=== PATIENT | female | born 1990 | race Caucasian/White ===

== ENCOUNTER 2016-07-30 08:13 | Emergency (ER) | payer OTHER ==
[2016-07-30 08:22] VITALS: BP 120/91; PULSE 71; TEMP 97.8; BMI 41.9
[2016-07-30] MEDS ORDERED: DEXAMETHASONE SOD PHOSPHATE 10 MG/1 ML VIAL IM ONE (08:42)
[2016-07-30] MEDS ORDERED: DEXAMETHASONE SOD PHOSPHATE 10 MG/1 ML VIAL ONE (08:48)
--- NOTE | 2016-07-30 09:26 | PDOC ---
[id number] TONSILITIS Time Seen by Provider: 07/30/16 08:37 History Source: Patient Exam Limitations: No Limitations - History of Present Illness Initial Comments: 07/30/16 15:31 25 yr female with sore throat for one week was on zpack for 5 days felt better than symptoms returned. no fever, hoarse voice ,, pt able to swallow secretions , no diffuculty. Past History - Past Medical History Allergies/Adverse Reactions: Allergies Allergy/AdvReac Type Severity Reaction Status Date / Time amoxicillin Allergy Mild Hives Verified 07/30/16 08:18 valdecoxib [From Bextra] Allergy Verified 07/30/16 08:18 ibuprofen AdvReac Verified 07/30/16 08:18 Home Medications: Ambulatory Orders Clindamycin [Cleocin -] 300 mg PO TID #30 capsule 07/30/16 Asthma: Yes Other medical history: migraines - Psycho/Social/Smoking Cessation Hx Anxiety: No Suicidal Ideation: No Smoking History: Never smoked Have you smoked in the past 12 months: No Information on smoking cessation initiated: No Hx Alcohol Use: No Drug/Substance Use Hx: No Substance Use Type: None Review of Systems - Review of Systems Able to Perform ROS?: Yes Is the patient limited Tuvaluan proficient: No Constitutional: No: Symptoms Reported HEENTM: Yes: See HPI Respiratory: No: Symptoms reported Cardiac (ROS): No: Symptoms Reported ABD/GI: No: Symptoms Reported : No: Symptoms Reported Musculoskeletal: No: Symptoms Reported Integumentary: No: Symptoms Reported Neurological: No: Symptoms reported *Physical Exam - Vital Signs Last Vital Signs Temp Pulse Resp BP Pulse Ox 97.8 F 71 18 120/91 100 07/30/16 08:19 07/30/16 08:19 07/30/16 08:19 07/30/16 08:19 07/30/16 08:19 - Physical Exam General Appearance: Yes: Nourished, Appropriately Dressed HEENT: positive: EOMI, SHORTY, TMs Normal, Pharyngeal Erythema, Tonsillar Erythema. negative: Tonsillar Exudate Neck: positive: Supple. negative: Tender Respiratory/Chest: positive: Lungs Clear, Normal Breath Sounds Cardiovascular: positive: Regular Rhythm, Regular Rate Gastrointestinal/Abdominal: positive: Normal Bowel Sounds, Soft, Other (27 weeks ) Musculoskeletal: positive: Normal Inspection Extremity: positive: Normal Capillary Refill, Normal Inspection, Normal Range of Motion Integumentary: positive: Normal Color, Dry, Warm Neurologic: positive: client support coordinator II-XII NML intact, Fully Oriented, Alert, Normal Mood/ Affect, Normal Response, Motor Strength 09/28 ED Treatment Course - ADDITIONAL ORDERS Additional order review: 07/30/16 08:55 Group A Strep Rapid Antigen - Final Throat - Medications Given in the ED: ED Medications Discontinued Medications Generic Name Dose Route Start Last Admin Trade Name Sharee PRN Reason Stop Dose Admin Dexamethasone Sodium Phosphate 10 mg 07/30/16 08:42 07/30/16 08:58 Decadron Injection - IM 07/30/16 08:43 10 mg ONCE ONE Administration Medical Decision Making - Medical Decision Making 07/30/16 15:33 cc: sore throat will check for strep pt non toxic stable vitals 07/30/16 15:35 positive will prescribe clindamycin for 10 days . results discussed with the patient. *DC/Admit/Observation/Transfer Diagnosis at time of Disposition: Strep pharyngitis - Discharge Dispostion Disposition: HOME Condition at time of disposition: Good - Prescriptions Prescriptions: Clindamycin [Cleocin -] 300 mg PO TID #30 capsule - Referrals Referrals: Malinda Alvarez MD [Primary Care Provider] - - Patient Instructions Additional Instructions: gargle with warm salt water 4-5 times a day take tylenol extra strength every 6-8hrs for pain take the prescribed antibiotic as directed for 10 days clindamycin follow with ENT if symptoms do not improve or worsen - Post Discharge Activity Work/School Note: Back to Work
[2016-07-30] MEDS ORDERED: ACETAMINOPHEN 500 MG TABLET (FP) ONE (09:33)
[2016-07-30] MEDS ORDERED: ACETAMINOPHEN 500 MG TABLET (FP) PO ONE (09:40)
== END 2016-07-30 09:41 | disposition home or self-care (01) ==
LOC: JERFT 08:13
PROC: 3E0233Z Introduction of Anti-inflammatory into Muscle, Percutaneous Approach (ICD-10-PCS; principal; 2016-07-30)
DX: J02.0 Streptococcal pharyngitis (principal); B95.0 Streptococcus, group A, as the cause of diseases classified elsewhere
CPT/HCPCS: 87070; 87430; 96372; 99281-25

== ENCOUNTER 2017-05-17 13:17 | Inpatient (IN) | payer OTHER ==
[2017-05-17 13:41] VITALS: BMI 41.9
[2017-05-17] MEDS ORDERED: SODIUM CHLORIDE 0.9% 1000 ML INFUS.BAG IV ONE ×2 (15:26→18:02)
[2017-05-17] MEDS ORDERED: ACETAMINOPHEN 1000 MG/100 ML VIAL (NON FORMULARY) IVPB ONE (15:26)
--- NOTE | 2017-05-17 15:38 | PDOC ---
History of Present Illness - General Chief Complaint: Pain, Acute Stated Complaint: DEHYDRATED (PCP SENT) Time Seen by Provider: 05/17/17 15:02 History Source: Patient, Parent(s) Exam Limitations: No Limitations - History of Present Illness Initial Comments: This is a 26 YOF with h/o asthma, gastritis, and dysmenorrhea (but LMP ended yesterday) who presents c/o abdominal pain, nausea, vomiting, and diarrhea for the past two days. 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 The abdominal pain is diffuse but worse in the epigastric and umbilical areas and radiates to the mid-back. She has had 9 episodes of NBNB vomiting since midnight today, and several episodes of light brown diarrhea (non-bloody non-black). She tried to take medications for her pain but has not been able to keep anything down, including medications and liquids. She has additionally had frontal headache and lightheadedness (causing her to be slightly unstable on her feet). She denies any vision changes, neck pain, chest pain, SOB, painful urination, vaginal bleeding or discharge, or other symptoms. Past History - Past Medical History Allergies/Adverse Reactions: Allergies Allergy/AdvReac Type Severity Reaction Status Date / Time amoxicillin Allergy Mild Hives Verified 05/17/17 13:34 valdecoxib [From Bextra] Allergy Verified 05/17/17 13:34 ibuprofen AdvReac Verified 05/17/17 13:34 Home Medications: Ambulatory Orders Clindamycin [Cleocin -] 300 mg PO TID #30 capsule 07/30/16 Asthma: Yes COPD: No GI Disorders: Yes - Suicide/Smoking/Psychosocial Hx Smoking History: Never smoked Have you smoked in the past 12 months: No Information on smoking cessation initiated: No Hx Alcohol Use: No Drug/Substance Use Hx: No Substance Use Type: None Review of Systems - Review of Systems Able to Perform ROS?: Yes Constitutional: Yes: Chills, Fever. No: Unexplained wgt Loss HEENTM: No: Nose Congestion, Throat Pain Respiratory: No: Cough, Shortness of Breath Cardiac (ROS): Yes: Lightheadedness. No: Chest Pain, Palpitations ABD/GI: Yes: Nausea, Poor Appetite, Vomiting, Other (abdominal pain) : No: Burning, Dysuria Musculoskeletal: Yes: Back Pain. No: Neck Pain Integumentary: No: Bruising, Rash Neurological: Yes: Headache. No: Numbness, Tingling, Weakness Endocrine: No: Unexplained Weight Gain, Unexplained Weight Loss *Physical Exam - Vital Signs Last Vital Signs Temp Pulse Resp BP Pulse Ox 99.3 F 117 H 18 118/65 100 05/17/17 13:36 05/17/17 13:36 05/17/17 13:36 05/17/17 13:36 05/17/17 13:36 - Physical Exam General Appearance: Yes: Nourished, Appropriately Dressed, Obese, Other (ill- appearing adult female in wheelchair with mother at bedside, appears uncomfortable and in mild distress, very soft-spoken). No: Apparent Distress HEENT: positive: EOMI, SHORTY, Normal Voice, Hearing Grossly Normal. negative: Scleral Icterus (R), Scleral Icterus (L), Nasal Congestion Neck: positive: Trachea midline, Supple. negative: Tender, Rigid Respiratory/Chest: positive: Lungs Clear, Normal Breath Sounds. negative: Respiratory Distress, Crackles, Rhonchi, Stridor, Wheezing Cardiovascular: positive: Regular Rhythm, Tachycardia. negative: Murmur Gastrointestinal/Abdominal: positive: Normal Bowel Sounds, Tender (umbilical and epigastric tenderness to palptation, no rebound tenderness, no peritoneal signs), Soft, Protuberent. negative: Organomegaly, Pulsatile Mass, Guarding Musculoskeletal: positive: Normal Inspection. negative: Decreased Range of Motion, Vertebral Tenderness Extremity: positive: Normal Capillary Refill, Normal Inspection, Normal Range of Motion. negative: Tender, Cyanosis Integumentary: positive: Normal Color, Dry, Warm. negative: Erythema, Rash, Bruising Neurologic: positive: consultant II-XII NML intact (grossly), Fully Oriented, Alert, Normal Mood/Affect, Normal Response, Motor Strength 5/5 ED Treatment Course - LABORATORY CBC & Chemistry Diagram: 05/17/17 16:29 05/17/17 16:29 Medical Decision Making - Medical Decision Making 26 YOF presents with 2 days abdominal pain, nausea, vomiting, diarrhea, subjective fever. Sent by her PCP where she was being seen for these symptoms and she was tachycardic in their office. Here in the ED she is tachycardic to 117 and febrile to 100.3 rectally. Sepsis order set is placed, also ordered is CT abdomen/pelvis w/ IV contrast, IVF, Ofirmev, Zofran. DDX IBNLT gastroenteritis, pancreatitis (i.e. 2/2 gallstones), cholecystitis, appendicitis, PUD, hepatitis, etc. 05/17/17 18:36 Patient's symptoms improved with IVF, Ofirmev, and Zofran. CBCD, CMP, lipase, lactate, UA and cx negative. Awaiting CT abdomen/pelvis. 05/17/17 18:55 Patient has return from CT now awaiting final report. Patient's care is signed out to night team. *DC/Admit/Observation/Transfer Diagnosis at time of Disposition: Abdominal pain Qualifiers: Abdominal location: epigastric Qualified Code(s): R10.13 - Epigastric pain Vomiting Qualifiers: Vomiting type: unspecified Vomiting Intractability: non-intractable Nausea presence: with nausea Qualified Code(s): R11.2 - Nausea with vomiting, unspecified Fever Qualifiers: Fever type: unspecified Qualified Code(s): R50.9 - Fever, unspecified - Referrals Referrals: Guille Reynolds [Primary Care Provider] - - Patient Instructions - Post Discharge Activity
[2017-05-17] MEDS ORDERED: ACETAMINOPHEN INJECTION 100 ML IVPB ONE (16:44)
--- NOTE | 2017-05-17 16:45 | PDOC ---
Attending Attestation - Resident Resident Name: Linda Ruiz - ED Attending Attestation I have performed the following: I have examined & evaluated the patient, The case was reviewed & discussed with the resident, I agree w/resident's findings & plan, Exceptions are as noted - HPI HPI: 05/17/17 16:48 26-year-old female hx of asthma presents to the emergency Department with diffuse abdominal pain, nausea, vomiting, diarrhea. Patient reports 3 days of the symptoms and states she is having difficulty tolerate by mouth. Has had tactile fevers. Patient went to her doctor but noted that she was severely dehydrated and tachycardic and sent the patient to the ED. - Physicial Exam PE: 05/17/17 16:49 GENERAL: Awake, alert, and fully oriented, in no acute distress. HEAD: No signs of trauma EYES: PERRLA, EOMI, sclera anicteric, conjunctiva clear ENT: Auricles normal inspection, hearing grossly normal, nares patent, oropharynx clear without exudates. NECK: Normal ROM, supple, no lymphadenopathy, JVD, or masses LUNGS: Breath sounds equal, clear to auscultation bilaterally. No wheezes, and no crackles HEART: Regular rate and rhythm, normal S1 and S2, no murmurs, rubs or gallops ABDOMEN: Diffuse abdominal tenderness. No rebound, no guarding. EXTREMITIES: Normal range of motion, no edema. No clubbing or cyanosis. No cords, erythema, or tenderness NEUROLOGICAL: Cranial nerves II through XII grossly intact. Normal speech, normal gait SKIN: Warm, Dry, normal turgor, no rashes or lesions noted. - Medical Decision Making 05/17/17 17:08 Vital Signs Temp Pulse Resp BP Pulse Ox 99.3 F 117 H 18 118/65 100 05/17/17 13:36 05/17/17 13:36 05/17/17 13:36 05/17/17 13:36 05/17/17 13:36 Differential includes gastroenteritis. However, given diffuse abdominal pain, r/o colitis, appendicitis, diveritculitis. Labs, CT abdomen and pelvis, UA/UC, Urine preg test. Pain control, IVF and reassess.
[2017-05-17] MEDS ORDERED: ONDANSETRON 4 MG/2 ML VIAL IVPUSH ONE (16:46)
[2017-05-17 17:01] LABS: VENOUS PH 7.37 (7.32-7.42)
[2017-05-17 17:01] LABS: EOS % 0.2 % (0-4.5); LYMPH # 1.3 (8-40); MCH 26.1 pg (25.7-33.7); MCHC 32.3 g/dl (32.0-36.0); MEAN CELL VOLUME 80.8 fl (80-96); MEAN PLT VOLUME 9.4 fl (7.5-11.1); MONO # 0.5 # (3.8-10.2); NEUT # 7.2 # (42.8-82.8); NEUT % 79.6 % (42.8-82.8); PLATELET COUNT 321 K/MM3 (134-434); RDW 14.8 % (11.6-15.6)
[2017-05-17 17:02] LABS: VENOUS BLOOD GAS HCO3 23.6 meq/L (19-25)
[2017-05-17 17:15] LABS: INR 1.05 (0.82-1.09); PROTHROMBIN TIME (PATIENT) 11.9 SEC (9.98-11.88)
[2017-05-17 17:17] LABS: ACTIVATED PTT 27.8 SECONDS (26.9-34.4)
[2017-05-17 17:32] LABS: ALBUMIN 3.1 g/dl (3.4-5.0); ANION GAP 9 (8-16); CALCIUM 8.3 mg/dL (8.5-10.1); CO2 24 mmol/L (21-32); GLUCOSE,RANDOM 87 mg/dL (74-106); MAGNESIUM 2.2 mg/dL (1.8-2.4)
[2017-05-17 17:35] LABS: ALK PHOS 55 U/L (45-117); CREATININE 0.7 mg/dL (0.55-1.02); PHOSPHOROUS 3.3 mg/dL (2.5-4.9); SGOT/AST 11 U/L (15-37); SGPT/ALT 14 U/L (12-78); TOT PROT 7.2 g/dl (6.4-8.2)
[2017-05-17 17:56] LABS: URINE APPEARANCE SLCLOUDY; URINE BILIRUBIN NEGATIVE (NEGATIVE); URINE BLOOD NEGATIVE (NEGATIVE); URINE COLOR DKYELLOW; URINE GLUCOSE (UA) NEGATIVE (NEGATIVE); URINE KETONE 1+ (NEGATIVE); URINE LEUK ESTERASE NEGATIVE (NEGATIVE); URINE NITRITE NEGATIVE (NEGATIVE); URINE UROBILINOGEN NEGATIVE mg/dL (0.2-1.0)
[2017-05-17 18:05] LABS: URINE PROTEIN 1+ (NEGATIVE)
[2017-05-17 18:26] LABS: URINE MUCUS MODERATE; URINE RBC 13 /hpf (0-3); URINE WBC 1 /hpf (3-5)
--- NOTE | 2017-05-17 19:21 | PDOC ---
*Physical Exam - Vital Signs Last Vital Signs Temp Pulse Resp BP Pulse Ox 99.3 F 117 H 18 118/65 100 05/17/17 13:36 05/17/17 13:36 05/17/17 13:36 05/17/17 13:36 05/17/17 13:36 - Physical Exam Comments: 05/17/17 22:39 General Appearance: Nourished. In mild Apparent Distress HEENT: EOMI, SHORTY. No Pharyngeal Erythema, Tonsillar Exudate, Tonsillar Erythema Neck: No Cervical Lymphadenopathy Respiratory/Chest: Lungs Clear, Normal Breath Sounds. No Crackles, Rales, Rhonchi, Wheezing Cardiovascular: Regular Rhythm, Regular Rate. No JVD, Murmur, Gallops, Rubs Gastrointestinal/Abdominal: Normal Bowel Sounds, Soft. Mild epigastric tenderness to palpation. No Guarding, Rebound, Musculoskeletal: No CVA Tenderness Extremity: Normal Capillary Refill Integumentary: Normal Color, Dry, Warm Neurologic: Fully Oriented, Alert, Normal Mood/Affect, Normal Response, ED Treatment Course - LABORATORY CBC & Chemistry Diagram: 05/17/17 16:29 05/17/17 16:29 - ADDITIONAL ORDERS Additional order review: Laboratory Results 05/17/17 05/17/17 05/17/17 16:29 16:29 16:29 PT with INR 11.90 H INR 1.05 PTT (Actin FS) 27.8 VBG pH POC VBG pCO2 POC VBG pO2 Mixed VBG HCO3 Sodium 138 Potassium 3.7 Chloride 105 Carbon Dioxide 24 Anion Gap 9 BUN 11 Creatinine 0.7 Creat Clearance w eGFR > 60 Random Glucose 87 Lactic Acid Calcium 8.3 L Phosphorus 3.3 Magnesium 2.2 Total Bilirubin 1.0 AST 11 L ALT 14 Alkaline Phosphatase 55 Total Protein 7.2 Albumin 3.1 L Lipase 91 Urine Color Urine Appearance Urine pH Ur Specific [place] Urine Protein Urine Glucose (UA) Urine Ketones Urine Blood Urine Nitrite Urine Bilirubin Urine Urobilinogen Urine WBC (Auto) Urine RBC (Auto) Ur Epithelial Cells Urine Mucus Urine HCG, Qual Blood Type B POSITIVE Antibody Screen Negative 05/17/17 05/17/17 05/17/17 16:00 16:00 16:00 PT with INR INR PTT (Actin FS) VBG pH 7.37 POC VBG pCO2 41.7 POC VBG pO2 50.6 H Mixed VBG HCO3 23.6 Sodium Potassium Chloride Carbon Dioxide Anion Gap BUN Creatinine Creat Clearance w eGFR Random Glucose Lactic Acid 1.0 Calcium Phosphorus Magnesium Total Bilirubin AST ALT Alkaline Phosphatase Total Protein Albumin Lipase Urine Color Urine Appearance Urine pH Ur Specific [place] Urine Protein Urine Glucose (UA) Urine Ketones Urine Blood Urine Nitrite Urine Bilirubin Urine Urobilinogen Urine WBC (Auto) Urine RBC (Auto) Ur Epithelial Cells Urine Mucus Urine HCG, Qual Negative Blood Type Antibody Screen 05/17/17 16:00 PT with INR INR PTT (Actin FS) VBG pH POC VBG pCO2 POC VBG pO2 Mixed VBG HCO3 Sodium Potassium Chloride Carbon Dioxide Anion Gap BUN Creatinine Creat Clearance w eGFR Random Glucose Lactic Acid Calcium Phosphorus Magnesium Total Bilirubin AST ALT Alkaline Phosphatase Total Protein Albumin Lipase Urine Color Dkyellow Urine Appearance Slcloudy Urine pH 5.0 Ur Specific [place] 1.034 Urine Protein 1+ H Urine Glucose (UA) Negative Urine Ketones 1+ H Urine Blood Negative Urine Nitrite Negative Urine Bilirubin Negative Urine Urobilinogen Negative Urine WBC (Auto) 1 Urine RBC (Auto) 13 Ur Epithelial Cells Rare Urine Mucus Moderate Urine HCG, Qual Blood Type Antibody Screen 05/17/17 16:29 RBC 5.10 MCV 80.8 MCHC 32.3 RDW 14.8 MPV 9.4 Neutrophils % 79.6 Lymphocytes % 14.2 Monocytes % 6.0 Eosinophils % 0.2 Basophils % 0.0 - Medications Given in the ED: ED Medications Discontinued Medications Generic Name Dose Route Start Last Admin Trade Name Freq PRN Reason Stop Dose Admin Acetaminophen 1,000 mg 05/17/17 15:26 05/17/17 16:51 Ofirmev Injection - IVPB 05/17/17 15:27 1,000 mg ONCE ONE Administration Ondansetron HCl 4 mg 05/17/17 16:46 05/17/17 16:51 Zofran Injection IVPUSH 05/17/17 16:47 4 mg ONCE ONE Administration Sodium Chloride 1,000 ml 05/17/17 15:26 05/17/17 16:51 Normal Saline - IV 05/17/17 15:27 1,000 ml ONCE ONE Administration Sodium Chloride 1,000 ml 05/17/17 18:02 05/17/17 18:04 Normal Saline - IV 05/17/17 18:03 1,000 ml ONCE ONE Administration Progress Note - Progress Note Progress Note: Received sign out from Dr. Aguirre. The patient is a 26 year old female with a history of asthma, gastritis, and dysmenorrhea (but LMP ended yesterday) who presents c/o abdominal pain, nausea, vomiting, and diarrhea for the past two days. Lab work up has been negative thus far and the patient reports significant improvement in her symptoms. The patient is pending a ct and xray read. If negative can discharging home on zofran. Medical Decision Making - Medical Decision Making 05/17/17 22:[address] is negative as read by our radiologist. The patient reports continued symptoms and is not tolerating PO intake. We believe that she requires observation admission at this time for continued management given her inability to tolerate PO and continued symptoms despite treatment here in the ED. *DC/Admit/Observation/Transfer Diagnosis at time of Disposition: Inadequate oral intake Abdominal pain Qualifiers: Abdominal location: epigastric Qualified Code(s): R10.13 - Epigastric pain Vomiting Qualifiers: Vomiting type: unspecified Vomiting Intractability: non-intractable Nausea presence: with nausea Qualified Code(s): R11.2 - Nausea with vomiting, unspecified Fever Qualifiers: Fever type: unspecified Qualified Code(s): R50.9 - Fever, unspecified - Discharge Dispostion Condition at time of disposition: Stable Admit: Yes - Referrals Referrals: Guille Reynolds [Primary Care Provider] - - Patient Instructions - Post Discharge Activity
[2017-05-17 20:02] LABS: URINE LEUK ESTERASE Negative (NEGATIVE)
[2017-05-17] MEDS ORDERED: diphenhydrAMINE HCL 25 MG CAPSULE (FP) PO ONE (22:31)
[2017-05-17] MEDS ORDERED: METOCLOPRAMIDE HCL INJECTION 10 MG/2 ML VIAL IVPUSH ONE (22:31)
[2017-05-17] MEDS ORDERED: METOCLOPRAMIDE HCL INJECTION 10 MG/2 ML VIAL ONE (22:41)
--- NOTE | 2017-05-17 22:59 | HP ---
CHIEF COMPLAINT: PCP: HISTORY OF PRESENT ILLNESS: 26-year-old female hx of asthma presents to the emergency Department with diffuse abdominal pain, nausea, vomiting, diarrhea. Patient reports 3 days of the symptoms and states she is having difficulty tolerate by mouth. 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 Patient went to her doctor but noted that she was severely dehydrated and tachycardic and sent the patient to the ED. ER course was notable for: (1) CT abdomen showed no acute abdominal pathology (2)CBC and CMP WNL (3)Zofran for nausea. Recent Travel: PAST MEDICAL HISTORY:asthma PAST SURGICAL HISTORY:none Social History: Smoking:Never Alcohol:denies Drugs: denies Family History: Allergies amoxicillin Allergy (Mild, Verified 05/17/17 13:34) Hives valdecoxib [From Bextra] Allergy (Verified 05/17/17 13:34) ibuprofen Adverse Reaction (Verified 05/17/17 13:34) HOME MEDICATIONS: Home Medications Medication Instructions Recorded Clindamycin [Cleocin -] 300 mg PO TID #30 capsule 07/30/16 REVIEW OF SYSTEMS CONSTITUTIONAL: Absent: fever, chills, diaphoresis, generalized weakness, malaise, loss of appetite, weight change HEENT: Absent: rhinorrhea, nasal congestion, throat pain, throat swelling, difficulty swallowing, mouth swelling, ear pain, eye pain, visual changes CARDIOVASCULAR: Absent: chest pain, syncope, palpitations, irregular heart rate, lightheadedness , peripheral edema RESPIRATORY: shortness of breath Absent: cough, , dyspnea with exertion, orthopnea, wheezing, stridor, hemoptysis GASTROINTESTINAL:abdominal pain, abdominal distension, nausea, vomiting Absent: , diarrhea, constipation, melena, hematochezia GENITOURINARY: Absent: dysuria, frequency, urgency, hesitancy, hematuria, flank pain, genital pain MUSCULOSKELETAL: Absent: myalgia, arthralgia, joint swelling, back pain, neck pain SKIN: Absent: rash, itching, pallor HEMATOLOGIC/IMMUNOLOGIC: Absent: easy bleeding, easy bruising, lymphadenopathy, frequent infections ENDOCRINE: Absent: unexplained weight gain, unexplained weight loss, heat intolerance, cold intolerance NEUROLOGIC: Absent: headache, focal weakness or paresthesias, dizziness, unsteady gait, seizure, mental status changes, bladder or bowel incontinence PSYCHIATRIC: Absent: anxiety, depression, suicidal or homicidal ideation, hallucinations. PHYSICAL EXAMINATION Vital Signs - 24 hr 05/17/17 13:36 Temperature 99.3 F Pulse Rate 117 H Respiratory 18 Rate Blood Pressure 118/65 O2 Sat by Pulse 100 Oximetry (%) GENERAL:resting comfortably. HEAD: NC AT EYES: PERRLA. EOMI EARS, NOSE, THROAT: Dry mucous membranes. NECK:supple with No JVD LUNGS: Decreased breath sound bilateral bases. no wheezing. HEART: RRR ABDOMEN: Soft, nontender, not distended, normoactive bowel sounds, no guarding, no rebound, no masses. No hepatomegaly or splenomegaly. MUSCULOSKELETAL: Normal range of motion at all joints. No bony deformities or tenderness. No CVA tenderness. UPPER EXTREMITIES: 2+ pulses, warm, well-perfused. No cyanosis. No clubbing. No peripheral edema. LOWER EXTREMITIES: 2+ pulses, warm, well-perfused. No calf tenderness. No peripheral edema. NEUROLOGICAL: Cranial nerves II-XII intact. Normal speech. Normal gait. PSYCHIATRIC: Cooperative. Good eye contact. Appropriate mood and affect. SKIN: Warm, dry, normal turgor, no rashes or lesions noted, normal capillary refill. Laboratory Results - last 24 hr 05/17/17 05/17/17 05/17/17 16:00 16:00 16:00 WBC RBC Hgb Hct MCV MCH MCHC RDW Plt Count MPV Neutrophils % Lymphocytes % Monocytes % Eosinophils % Basophils % PT with INR INR PTT (Actin FS) VBG pH 7.37 POC VBG pCO2 41.7 POC VBG pO2 50.6 H Mixed VBG HCO3 23.6 Sodium Potassium Chloride Carbon Dioxide Anion Gap BUN Creatinine Creat Clearance w eGFR Random Glucose Lactic Acid Calcium Phosphorus Magnesium Total Bilirubin AST ALT Alkaline Phosphatase Total Protein Albumin Lipase Urine Color Dkyellow Urine Appearance Slcloudy Urine pH 5.0 Ur Specific [place] 1.034 Urine Protein 1+ H Urine Glucose (UA) Negative Urine Ketones 1+ H Urine Blood Negative Urine Nitrite Negative Urine Bilirubin Negative Urine Urobilinogen Negative Ur Leukocyte Esterase Negative Urine WBC (Auto) 1 Urine RBC (Auto) 13 Ur Epithelial Cells Rare Urine Mucus Moderate Urine HCG, Qual Negative Blood Type Antibody Screen 05/17/17 05/17/17 05/17/17 16:00 16:29 16:29 WBC 9.0 RBC 5.10 Hgb 13.3 Hct 41.2 MCV 80.8 MCH 26.1 MCHC 32.3 RDW 14.8 Plt Count 321 MPV 9.4 Neutrophils % 79.6 Lymphocytes % 14.2 Monocytes % 6.0 Eosinophils % 0.2 Basophils % 0.0 PT with INR INR PTT (Actin FS) VBG pH POC VBG pCO2 POC VBG pO2 Mixed VBG HCO3 Sodium 138 Potassium 3.7 Chloride 105 Carbon Dioxide 24 Anion Gap 9 BUN 11 Creatinine 0.7 Creat Clearance w eGFR > 60 Random Glucose 87 Lactic Acid 1.0 Calcium 8.3 L Phosphorus 3.3 Magnesium 2.2 Total Bilirubin 1.0 AST 11 L ALT 14 Alkaline Phosphatase 55 Total Protein 7.2 Albumin 3.1 L Lipase 91 Urine Color Urine Appearance Urine pH Ur Specific [place] Urine Protein Urine Glucose (UA) Urine Ketones Urine Blood Urine Nitrite Urine Bilirubin Urine Urobilinogen Ur Leukocyte Esterase Urine WBC (Auto) Urine RBC (Auto) Ur Epithelial Cells Urine Mucus Urine HCG, Qual Blood Type Antibody Screen 05/17/17 05/17/17 16:29 16:29 WBC RBC Hgb Hct MCV MCH MCHC RDW Plt Count MPV Neutrophils % Lymphocytes % Monocytes % Eosinophils % Basophils % PT with INR 11.90 H INR 1.05 PTT (Actin FS) 27.8 VBG pH POC VBG pCO2 POC VBG pO2 Mixed VBG HCO3 Sodium Potassium Chloride Carbon Dioxide Anion Gap BUN Creatinine Creat Clearance w eGFR Random Glucose Lactic Acid Calcium Phosphorus Magnesium Total Bilirubin AST ALT Alkaline Phosphatase Total Protein Albumin Lipase Urine Color Urine Appearance Urine pH Ur Specific [place] Urine Protein Urine Glucose (UA) Urine Ketones Urine Blood Urine Nitrite Urine Bilirubin Urine Urobilinogen Ur Leukocyte Esterase Urine WBC (Auto) Urine RBC (Auto) Ur Epithelial Cells Urine Mucus Urine HCG, Qual Blood Type B POSITIVE Antibody Screen Negative ASSESSMENT/PLAN: 26 yo F with PMHx of asthma placed on observation for intractable abdominal pain and unable to tolerated PO Problem List - Problem (1) Abdominal pain Assessment/Plan: inability to tolerate PO 2/2 abdominal pain. * Will be placed on observation * Initial Labs and imaging were negative for abdominal pathology. * May be viral gastroenteritis. * Zofran 4mg IV PRN * Advance diet as tolerated. Visit type - Emergency Visit Emergency Visit: Yes ED Registration Date: 05/20/17 Care time: The patient presented to the Emergency Department on the above date and was hospitalized for further evaluation of their emergent condition. - New Patient This patient is new to me today: Yes Date on this admission: 05/21/17 - Critical Care Critical Care patient: No
[2017-05-17] MEDS: DEXTROSE 5%-NORMAL SALINE 1,000 ML IV SCH (23:37)
[2017-05-18] MEDS ORDERED: ACETAMINOPHEN 1000 MG/100 ML VIAL (NON FORMULARY) IVPB PRN (01:20)
--- NOTE | 2017-05-18 01:44 | PN ---
Teaching Attending Note Name of Resident: Nadir Donaldson ATTENDING PHYSICIAN STATEMENT I saw and evaluated the patient. I reviewed the resident's note and discussed the case with the resident. I agree with the resident's findings and plan as documented. SUBJECTIVE: OBJECTIVE: ASSESSMENT AND PLAN: this is a 26 y/o female admitted for decrease PO intake, associated with vomiting and diarrhea patient is being managed for gastroenteritis IVF hydration zofran prn pain management PO as tolerated
[2017-05-18] MEDS: ACETAMINOPHEN 500 MG TABLET (FP) PO PRN ×2 (01:45→09:23)
[2017-05-18] MEDS: ALBUTEROL SO4 0.083% IH SOL 2.5 MG/3 ML VIAL.NEB. NEB PRN (01:48)
[2017-05-18 08:29] LABS: BASO % 0.3 % (0-2.0); EOS # 0.2 # (0-4.5); EOS % 3.3 % (0-4.5); LYMPH # 2.3 (8-40); MCH 25.6 pg (25.7-33.7); MCHC 31.6 g/dl (32.0-36.0); MEAN CELL VOLUME 81.3 fl (80-96); MEAN PLT VOLUME 8.5 fl (7.5-11.1); MONO # 0.6 # (3.8-10.2); NEUT # 2.5 # (42.8-82.8); NEUT % 44.6 % (42.8-82.8); PLATELET COUNT 240 K/MM3 (134-434); RDW 15.1 % (11.6-15.6); WHITE BLOOD COUNT 5.6 K/mm3 (4.0-10.0)
[2017-05-18 08:49] LABS: ANION GAP 8 (8-16); CALCIUM 7.3 mg/dL (8.5-10.1); CO2 23 mmol/L (21-32); CREATININE 0.5 mg/dL (0.55-1.02); GLUCOSE,RANDOM 97 mg/dL (74-106); MAGNESIUM 2.2 mg/dL (1.8-2.4); PHOSPHOROUS 2.9 mg/dL (2.5-4.9)
[2017-05-18] MEDS: DEXTROSE 5%-NORMAL SALINE 1,000 ML IV SCH (12:00)
[2017-05-18] MEDS ORDERED: POTASSIUM CHLORIDE TABS 20 MEQ TABLET.ER (FP) PO ONE (14:44)
--- NOTE | 2017-05-18 15:15 | PN ---
Physical Exam: SUBJECTIVE: Patient seen and examined Patient feels very weak. lethargic able to ambulate but feels tired, No fever or chills. OBJECTIVE: Vital Signs Temperature 98.0 F 05/18/17 13:58 Pulse Rate 89 05/18/17 13:58 Respiratory Rate 20 05/18/17 10:00 Blood Pressure 110/65 05/18/17 13:58 O2 Sat by Pulse Oximetry (%) 97 05/18/17 06:38 GENERAL: The patient is awake, alert, and fully oriented, in no acute distress. HEAD: Normal with no signs of trauma. EYES: PERRL, extraocular movements intact, sclera anicteric, conjunctiva clear. ENT: Ears normal, oropharynx clear without exudates, moist mucous membranes. NECK: Trachea midline, full range of motion, supple. LUNGS: decreased air entery BL , no wheezes, no crackles, no accessory muscle use. HEART: Regular rate and rhythm, S1, S2 without murmur, rub or gallop. ABDOMEN: Soft, nontender, nondistended, normoactive bowel sounds, no guarding, no rebound, no hepatosplenomegaly, no masses. EXTREMITIES: 2+ pulses, warm, well-perfused, no edema. NEUROLOGICAL: Cranial nerves II through XII grossly intact. Normal speech, gait not observed. PSYCH: Normal mood, normal affect. SKIN: Warm, dry, normal turgor, no rashes or lesions noted CBCD WBC 5.6 K/mm3 (4.0-10.0) D 05/18/17 07:50 RBC 4.23 M/mm3 (3.60-5.2) 05/18/17 07:50 Hgb 10.8 GM/dL (10.7-15.3) D 05/18/17 07:50 Hct 34.3 % (32.4-45.2) D 05/18/17 07:50 MCV 81.3 fl (80-96) 05/18/17 07:50 MCHC 31.6 g/dl (32.0-36.0) L 05/18/17 07:50 RDW 15.1 % (11.6-15.6) 05/18/17 07:50 Plt Count 240 K/MM3 (134-434) D 05/18/17 07:50 MPV 8.5 fl (7.5-11.1) 05/18/17 07:50 CMP Sodium 143 mmol/L (136-145) 05/18/17 07:50 Potassium 3.4 mmol/L (3.5-5.1) L 05/18/17 07:50 Chloride 112 mmol/L (98-107) H 05/18/17 07:50 Carbon Dioxide 23 mmol/L (21-32) 05/18/17 07:50 Anion Gap 8 (8-16) 05/18/17 07:50 BUN 7 mg/dL (7-18) D 05/18/17 07:50 Creatinine 0.5 mg/dL (0.55-1.02) L D 05/18/17 07:50 Creat Clearance w eGFR > 60 (>60) 05/17/17 16:29 Random Glucose 97 mg/dL (74-106) 05/18/17 07:50 Calcium 7.3 mg/dL (8.5-10.1) L 05/18/17 07:50 Total Bilirubin 1.0 mg/dL (0.2-1.0) 05/17/17 16:29 AST 11 U/L (15-37) L 05/17/17 16:29 ALT 14 U/L (12-78) 05/17/17 16:29 Alkaline Phosphatase 55 U/L (45-117) 05/17/17 16:29 Total Protein 7.2 g/dl (6.4-8.2) 05/17/17 16:29 Albumin 3.1 g/dl (3.4-5.0) L 05/17/17 16:29 Active Medications Generic Name Dose Route Start Last Admin Trade Name Freq PRN Reason Stop Dose Admin Albuterol Sulfate 1 amp 05/18/17 01:29 05/18/17 01:48 Ventolin 0.083% Nebulizer Soln - NEB 1 amp Q4H PRN Administration SHORT OF BREATH/WHEEZING Budesonide/Formoterol Fumarate 2 puff 05/18/17 22:00 Symbicort 160/4.5mcg - IH BID KEISHA Potassium Chloride/Dextrose/Sod Cl 20 meq in 1,000 mls @ 150 mls/hr 05/18/17 15:15 D5-1/2ns+20 Meq Kcl - IV 05/19/17 21:54 ASDIR KEISHA Montelukast Sodium 10 mg 05/18/17 22:00 Singulair - PO HS KEISHA Ondansetron HCl 4 mg 05/17/17 22:54 Zofran Injection IVPUSH Q6H PRN NAUSEA Sumatriptan Succinate 25 mg 05/18/17 15:07 Imitrex - PO 05/18/17 15:08 ONCE ONE ASSESSMENT/PLAN: Patient is a 26 y/o female placed for an observation for having acute gastroenteritis with decreased PO intake, associated with vomiting and diarrhea. # Acute gastroenteritis, ivf ordered with potassium supplements. # migraine headache, one time imitrax order given # Asthma with decreased Air entery BL, started on Singulair, albuterol neb tx, will get pulmonary to see her, will get peak flow, incentive spirometer # Acute hypokalemia will replete, ordered 40meq x1 then IVF with 40meq # Obesity with BMI of 38 # Lung nodule 5mm at the pleural base in the superior segment of right lower lobe DVT PX: Lovenox , early ambulation Visit type - Emergency Visit Emergency Visit: Yes ED Registration Date: 05/17/17 Care time: The patient presented to the Emergency Department on the above date and was hospitalized for further evaluation of their emergent condition. - New Patient This patient is new to me today: Yes Date on this admission: 05/18/17 - Critical Care Critical Care patient: No - Discharge Referral Referred to [facility] No
[2017-05-18] MEDS ORDERED: SUMAtriptan SUCCINATE 25 MG TABLET PO ONE ×2 (16:15→23:53)
[2017-05-18] MEDS: D5-1/2NS+20 MEQ KCL - 20 MEQ/1,000 ML INFUS.BAG IV SCH (16:54)
[2017-05-18] MEDS: ONDANSETRON 4 MG/2 ML VIAL IVPUSH PRN (18:28)
[2017-05-18] MEDS ORDERED: PT OWN MED DRAWER 7, Y5N ONE (21:25)
[2017-05-18] MEDS: MONTELUKAST NA 10 MG TABLET PO SCH (21:40)
[2017-05-18] MEDS: BUDESONIDE/FORMETEROL FUMARATE 160/4.5 mcg INHALER IH SCH (23:25)
[2017-05-19] MEDS: ONDANSETRON 4 MG/2 ML VIAL IVPUSH PRN ×2 (00:14→15:47)
[2017-05-19] MEDS: D5-1/2NS+20 MEQ KCL - 20 MEQ/1,000 ML INFUS.BAG IV SCH (00:14)
[2017-05-19] MEDS: ALBUTEROL SO4 0.083% IH SOL 2.5 MG/3 ML VIAL.NEB. NEB PRN ×2 (06:02→22:00)
--- NOTE | 2017-05-19 09:43 | PN ---
Physical Exam: SUBJECTIVE: Patient seen and examined. Patient did not sleep well. Continues to have migraine and some sob. Had some nausea, but no vomiting, with breakfast; improved with Zofran. No further episodes of diarrhea. OBJECTIVE: Vital Signs Period Temp Pulse Resp BP Sys/Kim Pulse Ox Last 24 Hr 97.9 F-98.8 F 76-89 18-20 100-112/50-68 98-98 GENERAL: aaox3, dyspneic when walking in hallway EYES: sclera anicteric, conjunctiva clear ENT: MMM LUNGS: +airway entry b/l, no wheezes, rales, or rhonchi HEART: rrr, normal s1/s2, no m/r/g ABDOMEN: soft, ntnd, normoactive bowel sounds LOWER EXTREMITIES: 2+ pulses, wwp, no edema NEUROLOGICAL: Cranial nerves II through XII grossly intact. Normal speech, gait intact. Active Medications Albuterol Sulfate (Ventolin 0.083% Nebulizer Soln -) 1 amp NEB Q4H PRN PRN Reason: SHORT OF BREATH/WHEEZING Last Admin: 05/19/17 06:02 Dose: 1 amp Budesonide/Formoterol Fumarate (Symbicort 160/4.5mcg -) 2 puff IH BID KEISHA Last Admin: 05/19/17 09:44 Dose: 2 puff Dextrose/Sodium Chloride (D5-1/2ns -) 1,000 mls @ 150 mls/hr IV ASDIR KEISHA Montelukast Sodium (Singulair -) 10 mg PO HS KEISHA Last Admin: 05/18/17 21:40 Dose: 10 mg Ondansetron HCl (Zofran Injection) 4 mg IVPUSH Q6H PRN PRN Reason: NAUSEA Last Admin: 05/19/17 00:14 Dose: 4 mg Sumatriptan Succinate (Imitrex -) 100 mg PO DAILY PRN PRN Reason: HEADACHE ASSESSMENT/PLAN: 26yo obese woman with PMH of migraines and asthma who presents with NBNB emesis and watery diarrhea c/w gastroenteritis and asthma exacerbation. #Acute gastroenteritis, improving -D5 1/2NS @150 -Zofran prn for nausea #Asthma exacerbation -Pulm consulted -Albuterol nebs q4h PRN -home Singulair 10mg HS -Symbicort 160 2puffs BID -Incentive spirometer #migraine -cont home Imitrax 100mg qd #Hypokalemia -repleted with 80mEq -Trend #Obesity with BMI of 38 -Counseled on diet and lifestyle changes #Lung nodule 5mm at the pleural base in the superior segment of right lower lobe -OP follow-up #FEN: cont IVF/ K repleted/ banana,apple,toast, tea diet #DVT PPX - SCDs d/w Dr. Kev Leal MD PGY1 - Internal Medicine Visit type - Emergency Visit Emergency Visit: No - New Patient This patient is new to me today: Yes Date on this admission: 05/19/17 - Critical Care Critical Care patient: No
[2017-05-19] MEDS: BUDESONIDE/FORMETEROL FUMARATE 160/4.5 mcg INHALER IH SCH ×2 (09:44→21:17)
--- NOTE | 2017-05-19 10:16 | PN ---
Teaching Attending Note Name of Resident: Yelitza Leal ATTENDING PHYSICIAN STATEMENT I saw and evaluated the patient. I reviewed the resident's note and discussed the case with the resident. I agree with the resident's findings and plan as documented. SUBJECTIVE: Patient is slightly better now, but still feeling weak. Able to ambulate but holding on the rails of the wall on the hallway. c/o having severe migraine headache. OBJECTIVE: Vital Signs Temperature 97.9 F 05/19/17 06:00 Pulse Rate 76 05/19/17 06:00 Respiratory Rate 18 05/19/17 06:00 Blood Pressure 112/57 05/19/17 06:00 O2 Sat by Pulse Oximetry (%) 98 05/19/17 06:00 CBCD WBC 5.6 K/mm3 (4.0-10.0) D 05/18/17 07:50 RBC 4.23 M/mm3 (3.60-5.2) 05/18/17 07:50 Hgb 10.8 GM/dL (10.7-15.3) D 05/18/17 07:50 Hct 34.3 % (32.4-45.2) D 05/18/17 07:50 MCV 81.3 fl (80-96) 05/18/17 07:50 MCHC 31.6 g/dl (32.0-36.0) L 05/18/17 07:50 RDW 15.1 % (11.6-15.6) 05/18/17 07:50 Plt Count 240 K/MM3 (134-434) D 05/18/17 07:50 MPV 8.5 fl (7.5-11.1) 05/18/17 07:50 CMP Sodium 143 mmol/L (136-145) 05/18/17 07:50 Potassium 3.4 mmol/L (3.5-5.1) L 05/18/17 07:50 Chloride 112 mmol/L (98-107) H 05/18/17 07:50 Carbon Dioxide 23 mmol/L (21-32) 05/18/17 07:50 Anion Gap 8 (8-16) 05/18/17 07:50 BUN 7 mg/dL (7-18) D 05/18/17 07:50 Creatinine 0.5 mg/dL (0.55-1.02) L D 05/18/17 07:50 Creat Clearance w eGFR > 60 (>60) 05/17/17 16:29 Random Glucose 97 mg/dL (74-106) 05/18/17 07:50 Calcium 7.3 mg/dL (8.5-10.1) L 05/18/17 07:50 Total Bilirubin 1.0 mg/dL (0.2-1.0) 05/17/17 16:29 AST 11 U/L (15-37) L 05/17/17 16:29 ALT 14 U/L (12-78) 05/17/17 16:29 Alkaline Phosphatase 55 U/L (45-117) 05/17/17 16:29 Total Protein 7.2 g/dl (6.4-8.2) 05/17/17 16:29 Albumin 3.1 g/dl (3.4-5.0) L 05/17/17 16:29 Current Medications Generic Name Dose Route Start Last Admin Trade Name Freq PRN Reason Stop Dose Admin Albuterol Sulfate 1 amp 05/18/17 01:29 05/19/17 06:02 Ventolin 0.083% Nebulizer Soln - NEB 1 amp Q4H PRN Administration SHORT OF BREATH/WHEEZING Budesonide/Formoterol Fumarate 2 puff 05/18/17 22:00 05/19/17 09:44 Symbicort 160/4.5mcg - IH 2 puff BID KEISHA Administration Dextrose/Sodium Chloride 1,000 mls @ 150 mls/hr 05/19/17 10:15 D5-1/2ns - IV ASDIR KEISHA Montelukast Sodium 10 mg 05/18/17 22:00 05/18/17 21:40 Singulair - PO 10 mg HS KEISHA Administration Ondansetron HCl 4 mg 05/17/17 22:54 05/19/17 00:14 Zofran Injection IVPUSH 4 mg Q6H PRN Administration NAUSEA Sumatriptan Succinate 100 mg 05/19/17 09:41 Imitrex - PO DAILY PRN HEADACHE Home Medications Medication Instructions Recorded Montelukast Sodium [Singulair] 10 mg PO DAILY 05/19/17 Sumatriptan Succinate [Imitrex -] 100 mg PO PRN 05/19/17 PE: Chest: Better air entery today . S1S1 positive rest of PE as per resident's note ASSESSMENT AND PLAN: Patient is a 26 y/o female placed for an observation for having acute gastroenteritis with decreased PO intake, associated with vomiting and diarrhea. # Acute gastroenteritis, ivf continue # migraine headache, continues patient takes 100mg at home, will give her another dose # Asthma with decreased Air entery BL, started on Singulair, albuterol neb tx, will get pulmonary to see her, will get peak flow, incentive spirometer # Acute hypokalemia will replete, ordered 40meq x1 then IVF with 40meq # Obesity with BMI of 38 # Lung nodule 5mm at the pleural base in the superior segment of right lower lobe DVT PX: Lovenox , early ambulation
[2017-05-19] MEDS: DEXTROSE 5%-0.45% SALINE 1,000 ML IV SCH ×2 (11:24→21:16)
--- NOTE | 2017-05-19 11:27 | PN ---
Progress Note (short form) - Note Progress Note: PULMONARY CONSULTATION DICTATED 05/19/17 IMP ASTHMA EXACERBATION GASTROENTERITIS RLL NODULE PLAN INHALED BRONCHODILATORS STEROIDS X 24HR O2 PRN PFTS OUTPATIENT F/U LOW DOSE CHEST CT ONE YR DR FELIZ Problem List - Problems (1) Asthma Code(s): J45.909 - UNSPECIFIED ASTHMA, UNCOMPLICATED (2) Abdominal pain Code(s): R10.9 - UNSPECIFIED ABDOMINAL PAIN Qualifiers: Abdominal location: epigastric Qualified Code(s): R10.13 - Epigastric pain (3) Vomiting Code(s): R11.10 - VOMITING, UNSPECIFIED Qualifiers: Vomiting type: unspecified Vomiting Intractability: non-intractable Nausea presence: with nausea Qualified Code(s): R11.2 - Nausea with vomiting, unspecified (4) Headache Code(s): R51 - HEADACHE (5) Gastroenteritis Code(s): K52.9 - NONINFECTIVE GASTROENTERITIS AND COLITIS, UNSPECIFIED (6) Lung nodule Code(s): R91.1 - SOLITARY PULMONARY NODULE
[2017-05-19] MEDS: ENOXAPARIN NA (PORCINE) 40 MG/0.4 ML DISP.SYRIN SQ SCH (12:12)
[2017-05-19] MEDS: SUMAtriptan SUCCINATE 50 MG TABLET PO PRN (12:39)
[2017-05-19] MEDS: methylPREDNISolone NA SUCC 40 MG/1 ML VIAL IVPUSH SCH ×2 (15:26→21:17)
--- NOTE | 2017-05-19 18:54 | CONS ---
DATE OF CONSULTATION: 05/19/2017 REFERRING PHYSICIAN: Reuben Angulo MD The patient is a 26-year-old female with a past medical history of chronic asthma, never been hospitalized, history of respiratory failure no history of hospitalizations who is a nonsmoker, admitted to [facility] with complaint of diffuse abdominal pain, nausea, vomiting and diarrhea. The patient presented to the emergency room with a 3-day history of the above symptoms. 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 The patient went to her private doctor and at the time, was noted to severely dehydrated and tachycardic and was sent to the emergency room. In the ER, she underwent a CT of the abdomen which showed no evidence of acute abdominal pathology but revealed a small pleural-based 5-mm nodule on the right lower lobe. She was admitted to the floor. She was started on IV antibiotics, IV fluids. The patient also has been complaining of increasing shortness of breath and dyspnea on exertion. Denies any chest pains, although she does complain of chest tightness. She also denies any hemoptysis or cough. She was started on inhaled bronchodilators. She is a nonsmoker. There is no history of occupational exposure to chemicals or fumes. There is no history of DVT or PE in the past. There is no history of recent travel. PAST MEDICAL HISTORY: Includes asthma. CURRENT MEDICATIONS: Include Symbicort, Zofran, Lovenox, albuterol, IV D5 half normal, Singulair and Imitrex. REVIEW OF SYSTEMS: Positive dyspnea. No chest pain, no cough, no hemoptysis. Positive for abdominal discomfort. No lower extremity edema. PHYSICAL EXAMINATION: General: The patient is an obese female, awake, alert, in no acute distress. She is dyspneic, but in no acute distress. Vital Signs: She is currently afebrile. Blood pressure is 112/70. Respiratory rate is 18. O2 saturation is 98% on room air. HEENT: Normocephalic, atraumatic. Neck: Supple. Heart: Regular with S1, S2. Chest: Clear. Abdomen: Soft. Bowel sounds positive. Extremities: No cyanosis or edema. LABORATORY: WBCs 5.6, hemoglobin 10.8, hematocrit 34.3, platelet count of 240,000. Venous blood gas with pH 7.37, PCO2 of 41, and PO2 of 50.6. Chemistries: BUN 7, creatinine 0.5. Chest x-ray: No infiltrates, no effusions. CT abdomen: No evidence of acute intraabdominal pathology. There is a small pleural-based nodule, 5 mm, superior segment of right lower lobe. IMPRESSION: 1. Mild asthma exacerbation. 2. Likely gastroenteritis. 3. A 5-mm lung nodule, nonspecific. PLAN: Short course of steroids for 24 hours, inhaled bronchodilators, supplemental O2. Check peak flow. PFTs as outpatient. Followup chest CT low dose in 1 year. Continue IV fluids. CAMRYN FELIZ M.D. [id number]
[2017-05-19] MEDS: MONTELUKAST NA 10 MG TABLET PO SCH (21:17)
[2017-05-20] MEDS: methylPREDNISolone NA SUCC 40 MG/1 ML VIAL IVPUSH SCH ×3 (02:35→15:01)
[2017-05-20] MEDS: DEXTROSE 5%-0.45% SALINE 1,000 ML IV SCH ×2 (05:30→15:02)
[2017-05-20] MEDS: SUMAtriptan SUCCINATE 50 MG TABLET PO PRN (06:59)
[2017-05-20] MEDS: ALBUTEROL SO4 0.083% IH SOL 2.5 MG/3 ML VIAL.NEB. NEB PRN ×3 (07:05→23:21)
[2017-05-20 07:55] LABS: MCH 25.6 pg (25.7-33.7); MCHC 31.5 g/dl (32.0-36.0); MEAN CELL VOLUME 81.3 fl (80-96); MEAN PLT VOLUME 8.6 fl (7.5-11.1); PLATELET COUNT 367 K/MM3 (134-434); WHITE BLOOD COUNT 10.5 K/mm3 (4.0-10.0)
[2017-05-20 08:49] LABS: ALBUMIN 3.2 g/dl (3.4-5.0); ANION GAP 10 (8-16); BILIRUBIN,TOTAL 0.5 mg/dL (0.2-1.0); CALCIUM 8.7 mg/dL (8.5-10.1); CO2 21 mmol/L (21-32); CREATININE 0.8 mg/dL (0.55-1.02); GLUCOSE,RANDOM 156 mg/dL (74-106); SGOT/AST 9 U/L (15-37); SGPT/ALT 17 U/L (12-78); TOT PROT 7.4 g/dl (6.4-8.2)
[2017-05-20 08:50] LABS: ALK PHOS 58 U/L (45-117)
[2017-05-20] MEDS: BUDESONIDE/FORMETEROL FUMARATE 160/4.5 mcg INHALER IH SCH ×2 (09:20→22:15)
[2017-05-20] MEDS: ENOXAPARIN NA (PORCINE) 40 MG/0.4 ML DISP.SYRIN SQ SCH (09:21)
--- NOTE | 2017-05-20 11:54 | PN ---
Progress Note, Physician History of Present Illness: PULMONARY ALERT,C/O SOB,AND CHEST TIGHTNESS ALTHOUGH APPEARS COMFORTABLE - Current Medication List Current Medications: Active Medications Albuterol Sulfate (Ventolin 0.083% Nebulizer Soln -) 1 amp NEB Q4H PRN PRN Reason: SHORT OF BREATH/WHEEZING Last Admin: 05/20/17 07:05 Dose: 1 amp Budesonide/Formoterol Fumarate (Symbicort 160/4.5mcg -) 2 puff IH BID [facility] Last Admin: 05/20/17 09:20 Dose: 2 puff Enoxaparin Sodium (Lovenox -) 40 mg SQ DAILY KEISHA Last Admin: 05/20/17 09:21 Dose: Not Given Dextrose/Sodium Chloride (D5-1/2ns -) 1,000 mls @ 150 mls/hr IV ASDIR KEISHA Last Admin: 05/20/17 05:30 Dose: 150 mls/hr Methylprednisolone Sodium Succinate (Solu-Medrol -) 40 mg IVPUSH Q6H-IV KEISHA Last Admin: 05/20/17 09:21 Dose: 40 mg Montelukast Sodium (Singulair -) 10 mg PO HS KEISHA Last Admin: 05/19/17 21:17 Dose: 10 mg Ondansetron HCl (Zofran Injection) 4 mg IVPUSH Q6H PRN PRN Reason: NAUSEA Last Admin: 05/19/17 15:47 Dose: 4 mg Sumatriptan Succinate (Imitrex -) 100 mg PO DAILY PRN PRN Reason: HEADACHE Last Admin: 05/20/17 06:59 Dose: 100 mg - Objective Vital Signs: Vital Signs Temperature 98.2 F 05/20/17 09:48 Pulse Rate 98 H 05/20/17 09:48 Respiratory Rate 18 05/20/17 09:48 Blood Pressure 133/79 05/20/17 09:48 O2 Sat by Pulse Oximetry (%) 99 05/20/17 06:00 Constitutional: Yes: Well Nourished, Calm Eyes: Yes: WNL HENT: Yes: WNL Neck: Yes: WNL Cardiovascular: Yes: Regular Rate and Rhythm, S1, S2 Respiratory: Yes: CTA Bilaterally Gastrointestinal: Yes: Normal Bowel Sounds, Soft Extremities: Yes: WNL Edema: No Labs: CBC, BMP 05/20/17 07:17 05/20/17 07:17 INR, PTT INR 1.05 (0.82-1.09) 05/17/17 16:29 Problem List - Problems (1) Asthma Code(s): J45.909 - UNSPECIFIED ASTHMA, UNCOMPLICATED (2) Abdominal pain Code(s): R10.9 - UNSPECIFIED ABDOMINAL PAIN Qualifiers: Abdominal location: epigastric Qualified Code(s): R10.13 - Epigastric pain (3) Vomiting Code(s): R11.10 - VOMITING, UNSPECIFIED Qualifiers: Vomiting type: unspecified Vomiting Intractability: non-intractable Nausea presence: with nausea Qualified Code(s): R11.2 - Nausea with vomiting, unspecified (4) Headache Code(s): R51 - HEADACHE (5) Gastroenteritis Code(s): K52.9 - NONINFECTIVE GASTROENTERITIS AND COLITIS, UNSPECIFIED (6) Lung nodule Code(s): R91.1 - SOLITARY PULMONARY NODULE Assessment/Plan MP ASTHMA EXACERBATION IMPROVING GASTROENTERITIS RLL NODULE PLAN INHALED BRONCHODILATORS STEROIDS X 24HR O2 PRN PFTS OUTPATIENT F/U LOW DOSE CHEST CT [address] FELIZ Problem List - Problems (1) Asthma Code(s): J45.909 - UNSPECIFIED ASTHMA, UNCOMPLICATED (2) Abdominal pain Code(s): R10.9 - UNSPECIFIED ABDOMINAL PAIN Qualifiers: Abdominal location: epigastric Qualified Code(s): R10.13 - Epigastric pain (3) Vomiting Code(s): R11.10 - VOMITING, UNSPECIFIED Qualifiers: Vomiting type: unspecified Vomiting Intractability: non-intractable Nausea presence: with nausea Qualified Code(s): R11.2 - Nausea with vomiting, unspecified (4) Headache Code(s): R51 - HEADACHE (5) Gastroenteritis Code(s): K52.9 - NONINFECTIVE GASTROENTERITIS AND COLITIS, UNSPECIFIED (6) Lung nodule Code(s): R91.1 - SOLITARY PULMONARY NODULE
[2017-05-20] MEDS ORDERED: MAGNESIUM SULF 50% (8.12 MEQ/2 ML-1 GM VIAL) IVPB ONE (16:00)
[2017-05-20] MEDS: AZITHROMYCIN IVPB 500 MG in DEXTROSE 5%-WATER - 250 ML IVPB SCH (17:30)
[2017-05-20] MEDS ORDERED: SUMAtriptan SUCCINATE 50 MG TABLET PO ONE (18:30)
--- NOTE | 2017-05-20 19:13 | PN ---
Progress Note (short form) - Note Progress Note: Patient is feeling better, still is having dyspnea on ambulation. Vital Signs Temperature 98.4 F 05/20/17 18:00 Pulse Rate 115 H 05/20/17 18:00 Respiratory Rate 20 05/20/17 18:00 Blood Pressure 148/71 05/20/17 18:00 O2 Sat by Pulse Oximetry (%) 97 05/20/17 14:00 GENERAL: The patient is awake, alert, and fully oriented, in no acute distress. HEAD: Normal with no signs of trauma. EYES: PERRL, extraocular movements intact, sclera anicteric, conjunctiva clear. ENT: Ears normal, oropharynx clear without exudates, moist mucous membranes. NECK: Trachea midline, full range of motion, supple. LUNGS: decreased air entery BL , scattered wheezes, no crackles, no accessory muscle use. HEART: Regular rate and rhythm, S1, S2 without murmur, rub or gallop. ABDOMEN: Soft, nontender, nondistended, normoactive bowel sounds, no guarding, no rebound, no hepatosplenomegaly, no masses. EXTREMITIES: 2+ pulses, warm, well-perfused, no edema. NEUROLOGICAL: Cranial nerves II through XII grossly intact. Normal speech, gait not observed. PSYCH: Normal mood, normal affect. SKIN: Warm, dry, normal turgor, no rashes or lesions noted CBCD WBC 10.5 K/mm3 (4.0-10.0) H D 05/20/17 07:17 RBC 4.98 M/mm3 (3.60-5.2) 05/20/17 07:17 Hgb 12.8 GM/dL (10.7-15.3) D 05/20/17 07:17 Hct 40.5 % (32.4-45.2) D 05/20/17 07:17 MCV 81.3 fl (80-96) 05/20/17 07:17 MCHC 31.5 g/dl (32.0-36.0) L 05/20/17 07:17 RDW 15.0 % (11.6-15.6) 05/20/17 07:17 Plt Count 367 K/MM3 (134-434) D 05/20/17 07:17 MPV 8.6 fl (7.5-11.1) 05/20/17 07:17 CMP Sodium 139 mmol/L (136-145) 05/20/17 07:17 Potassium 4.4 mmol/L (3.5-5.1) D 05/20/17 07:17 Chloride 108 mmol/L (98-107) H 05/20/17 07:17 Carbon Dioxide 21 mmol/L (21-32) 05/20/17 07:17 Anion Gap 10 (8-16) 05/20/17 07:17 BUN 4 mg/dL (7-18) L D 05/20/17 07:17 Creatinine 0.8 mg/dL (0.55-1.02) D 05/20/17 07:17 Creat Clearance w eGFR > 60 (>60) 05/20/17 07:17 Random Glucose 156 mg/dL (74-106) H D 05/20/17 07:17 Calcium 8.7 mg/dL (8.5-10.1) 05/20/17 07:17 Total Bilirubin 0.5 mg/dL (0.2-1.0) D 05/20/17 07:17 AST 9 U/L (15-37) L 05/20/17 07:17 ALT 17 U/L (12-78) D 05/20/17 07:17 Alkaline Phosphatase 58 U/L (45-117) 05/20/17 07:17 Total Protein 7.4 g/dl (6.4-8.2) 05/20/17 07:17 Albumin 3.2 g/dl (3.4-5.0) L 05/20/17 07:17 Current Medications Generic Name Dose Route Start Last Admin Trade Name Freq PRN Reason Stop Dose Admin Albuterol Sulfate 1 amp 05/18/17 01:29 05/20/17 16:03 Ventolin 0.083% Nebulizer Soln - NEB 1 amp Q4H PRN Administration SHORT OF BREATH/WHEEZING Budesonide/Formoterol Fumarate 2 puff 05/18/17 22:00 05/20/17 09:20 Symbicort 160/4.5mcg - IH 2 puff BID KEISHA Administration Enoxaparin Sodium 40 mg 05/19/17 11:30 05/20/17 09:21 Lovenox - SQ Not Given DAILY KEISHA Dextrose/Sodium Chloride 1,000 mls @ 150 mls/hr 05/19/17 10:15 05/20/17 15:02 D5-1/2ns - IV 150 mls/hr ASDIR KEISHA Administration Azithromycin 500 mg/ Dextrose 250 mls @ 250 mls/hr 05/20/17 15:00 05/20/17 17 :30 IVPB 05/23/17 14:59 250 mls/hr DAILY KEISHA Administration Methylprednisolone Sodium Succinate 60 mg 05/20/17 23:00 Solu-Medrol - IVPUSH Q8H KEISHA Montelukast Sodium 10 mg 05/18/17 22:00 05/19/17 21:17 Singulair - PO 10 mg HS KEISHA Administration Sumatriptan Succinate 100 mg 05/19/17 09:41 05/20/17 06:59 Imitrex - PO 100 mg DAILY PRN Administration HEADACHE Home Medications Medication Instructions Recorded Montelukast Sodium [Singulair] 10 mg PO DAILY 05/19/17 Sumatriptan Succinate [Imitrex -] 100 mg PO PRN 05/19/17 A/P: Patient is a 26 y/o female placed for an observation for having acute gastroenteritis with decreased PO intake, associated with vomiting and diarrhea. # Acute Asthma exacerbation ; decreased Air entery BL, continue Singulair, albuterol neb tx, steroid IV q6 , pulmonary on the case incentive spirometer, peak flow. # Acute gastroenteritis, resolved # migraine headache, continues patient takes 100mg at home, will give her another dose, as per patient can take 100mg x 2 per day # Acute hypokalemia repleted # Obesity with BMI of 38 # Lung nodule 5mm at the pleural base in the superior segment of right lower lobe, needs to be reevaluated in 4 months. DVT PX: Lovenox , early ambulation Visit type - Emergency Visit Emergency Visit: Yes ED Registration Date: 05/20/17 Care time: The patient presented to the Emergency Department on the above date and was hospitalized for further evaluation of their emergent condition. - New Patient This patient is new to me today: No - Critical Care Critical Care patient: No
[2017-05-20] MEDS: methylPREDNISolone NA SUCC 125 MG/2 ML VIAL IVPUSH SCH (22:14)
[2017-05-20] MEDS: MONTELUKAST NA 10 MG TABLET PO SCH (22:15)
[2017-05-21] MEDS: DEXTROSE 5%-0.45% SALINE 1,000 ML IV SCH ×3 (04:12→17:51)
[2017-05-21] MEDS: methylPREDNISolone NA SUCC 125 MG/2 ML VIAL IVPUSH SCH (06:14)
[2017-05-21 08:47] LABS: LYMPH # 1.6 (8-40); MCH 25.3 pg (25.7-33.7); MCHC 31.2 g/dl (32.0-36.0); MEAN CELL VOLUME 80.9 fl (80-96); MEAN PLT VOLUME 8.3 fl (7.5-11.1); MONO # 0.9 # (3.8-10.2); NEUT # 18.7 # (42.8-82.8); NEUT % 88.6 % (42.8-82.8); PLATELET COUNT 414 K/MM3 (134-434); RDW 15.1 % (11.6-15.6); WHITE BLOOD COUNT 21.2 K/mm3 (4.0-10.0)
[2017-05-21 09:00] LABS: ALBUMIN 3.1 g/dl (3.4-5.0); ANION GAP 9 (8-16); BILIRUBIN,TOTAL 0.4 mg/dL (0.2-1.0); CALCIUM 8.5 mg/dL (8.5-10.1); CO2 23 mmol/L (21-32); CREATININE 0.8 mg/dL (0.55-1.02); GLUCOSE,RANDOM 136 mg/dL (74-106); SGOT/AST 8 U/L (15-37); SGPT/ALT 17 U/L (12-78)
[2017-05-21 09:01] LABS: ALK PHOS 55 U/L (45-117)
[2017-05-21] MEDS ORDERED: PT OWN MED DRAWER 7, Y5N ONE ×2 (09:35→21:14)
[2017-05-21] MEDS: AZITHROMYCIN IVPB 500 MG in DEXTROSE 5%-WATER - 250 ML IVPB SCH (09:41)
[2017-05-21] MEDS: BUDESONIDE/FORMETEROL FUMARATE 160/4.5 mcg INHALER IH SCH ×2 (09:41→21:43)
[2017-05-21] MEDS: ENOXAPARIN NA (PORCINE) 40 MG/0.4 ML DISP.SYRIN SQ SCH (09:41)
[2017-05-21] MEDS: SUMAtriptan SUCCINATE 50 MG TABLET PO PRN (10:45)
[2017-05-21] MEDS: ALBUTEROL SO4 0.083% IH SOL 2.5 MG/3 ML VIAL.NEB. NEB PRN ×2 (12:54→21:24)
--- NOTE | 2017-05-21 13:07 | EKG ---
Test Reason : Blood Pressure : / mmHG Vent. Rate : 097 BPM Atrial Rate : 097 BPM P-R Int : 140 ms QRS Dur : 080 ms QT Int : 358 ms P-R-T Axes : 047 020 009 degrees QTc Int : 454 ms NORMAL SINUS RHYTHM NONSPECIFIC T WAVE ABNORMALITY ABNORMAL ECG WHEN COMPARED WITH ECG OF 26-JUL-2003 01:09, PREVIOUS ECG IS PRESENT Confirmed by MD Brandon, Narendra ([id number]) on 05/21/2017 1:06:49 PM Referred By: HINA DYE DR Confirmed By:Narendra Taylor MD
--- NOTE | 2017-05-21 13:13 | PN ---
Progress Note, Physician History of Present Illness: PULMONARY ALERT,C/O CHEST TIGHTNESS. O2 SAT 98% ON RA ,PEAK FLOW 350 - Current Medication List Current Medications: Active Medications Albuterol Sulfate (Ventolin 0.083% Nebulizer Soln -) 1 amp NEB Q4H PRN PRN Reason: SHORT OF BREATH/WHEEZING Last Admin: 05/21/17 12:54 Dose: 1 amp Budesonide/Formoterol Fumarate (Symbicort 160/4.5mcg -) 2 puff IH BID KEISHA Last Admin: 05/21/17 09:41 Dose: 2 puff Enoxaparin Sodium (Lovenox -) 40 mg SQ DAILY KEISHA Last Admin: 05/21/17 09:41 Dose: Not Given Dextrose/Sodium Chloride (D5-1/2ns -) 1,000 mls @ 150 mls/hr IV ASDIR KEISHA Last Admin: 05/21/17 09:41 Dose: 150 mls/hr Azithromycin 500 mg/ Dextrose 250 mls @ 250 mls/hr IVPB DAILY [facility] Stop: 05/23/17 14:59 Last Admin: 05/21/17 09:41 Dose: 250 mls/hr Methylprednisolone Sodium Succinate (Solu-Medrol -) 60 mg IVPUSH Q8H KEISHA Last Admin: 05/21/17 06:14 Dose: 60 mg Montelukast Sodium (Singulair -) 10 mg PO HS KEISHA Last Admin: 05/20/17 22:15 Dose: 10 mg Sumatriptan Succinate (Imitrex -) 100 mg PO DAILY PRN PRN Reason: HEADACHE Last Admin: 05/21/17 10:45 Dose: 100 mg - Objective Vital Signs: Vital Signs Temperature 97.9 F 05/21/17 09:12 Pulse Rate 113 H 05/21/17 12:59 Respiratory Rate 18 05/21/17 09:12 Blood Pressure 105/66 05/21/17 09:12 O2 Sat by Pulse Oximetry (%) 95 05/21/17 12:59 Constitutional: Yes: Calm, Obese Eyes: Yes: WNL HENT: Yes: WNL Neck: Yes: WNL Cardiovascular: Yes: Regular Rate and Rhythm, S1, S2 Respiratory: Yes: CTA Bilaterally Gastrointestinal: Yes: Normal Bowel Sounds, Soft Extremities: Yes: WNL Edema: No Labs: CBC, BMP 05/21/17 08:20 05/21/17 08:15 INR, PTT INR 1.05 (0.82-1.09) 05/17/17 16:29 Problem List - Problems (1) Asthma Code(s): J45.909 - UNSPECIFIED ASTHMA, UNCOMPLICATED (2) Abdominal pain Code(s): R10.9 - UNSPECIFIED ABDOMINAL PAIN Qualifiers: Abdominal location: epigastric Qualified Code(s): R10.13 - Epigastric pain (3) Vomiting Code(s): R11.10 - VOMITING, UNSPECIFIED Qualifiers: Vomiting type: unspecified Vomiting Intractability: non-intractable Nausea presence: with nausea Qualified Code(s): R11.2 - Nausea with vomiting, unspecified (4) Headache Code(s): R51 - HEADACHE (5) Gastroenteritis Code(s): K52.9 - NONINFECTIVE GASTROENTERITIS AND COLITIS, UNSPECIFIED (6) Lung nodule Code(s): R91.1 - SOLITARY PULMONARY NODULE Assessment/Plan MP ASTHMA EXACERBATION IMPROVING GASTROENTERITIS RLL NODULE PLAN INHALED BRONCHODILATORS PREDNISONE O2 PRN PFTS OUTPATIENT F/U LOW DOSE CHEST CT ONE YR DR FELIZ Problem List - Problems (1) Asthma Code(s): J45.909 - UNSPECIFIED ASTHMA, UNCOMPLICATED (2) Abdominal pain Code(s): R10.9 - UNSPECIFIED ABDOMINAL PAIN Qualifiers: Abdominal location: epigastric Qualified Code(s): R10.13 - Epigastric pain (3) Vomiting Code(s): R11.10 - VOMITING, UNSPECIFIED Qualifiers: Vomiting type: unspecified Vomiting Intractability: non-intractable Nausea presence: with nausea Qualified Code(s): R11.2 - Nausea with vomiting, unspecified (4) Headache Code(s): R51 - HEADACHE (5) Gastroenteritis Code(s): K52.9 - NONINFECTIVE GASTROENTERITIS AND COLITIS, UNSPECIFIED (6) Lung nodule Code(s): R91.1 - SOLITARY PULMONARY NODULE
--- NOTE | 2017-05-21 17:18 | PN ---
Physical Exam: SUBJECTIVE: Patient seen and examined. C/o chest tightness and weak after walking with RT. Tolerated regular diet with no nausea or vomiting. No further episodes of diarrhea. No fever or chills. OBJECTIVE: Vital Signs Period Temp Pulse Resp BP Sys/Kim Pulse Ox Last 24 Hr 97.9 F-98.4 F 90-115 18-20 105-148/54-71 95-98 GENERAL: aaox3, lying comfortably in bed, speaking in full sentences EYES: sclera anicteric, conjunctiva clear ENT: MMM LUNGS: +airway entry b/l, no wheezes, rales, or rhonchi HEART: rrr, normal s1/s2, no m/r/g ABDOMEN: soft, ntnd, normoactive bowel sounds LOWER EXTREMITIES: 2+ pulses, wwp, no edema NEUROLOGICAL: Cranial nerves II through XII grossly intact. Normal speech. Laboratory Results - last 24 hr CBC, BMP 05/21/17 08:20 05/21/17 08:15 Hepatic Panel Total Bilirubin 0.4 mg/dL (0.2-1.0) 05/21/17 08:15 AST 8 U/L (15-37) L 05/21/17 08:15 ALT 17 U/L (12-78) 05/21/17 08:15 Alkaline Phosphatase 55 U/L (45-117) 05/21/17 08:15 Albumin 3.1 g/dl (3.4-5.0) L 05/21/17 08:15 Active Medications Albuterol Sulfate (Ventolin 0.083% Nebulizer Soln -) 1 amp NEB Q4H PRN PRN Reason: SHORT OF BREATH/WHEEZING Last Admin: 05/21/17 12:54 Dose: 1 amp Budesonide/Formoterol Fumarate (Symbicort 160/4.5mcg -) 2 puff IH BID [facility] Last Admin: 05/21/17 09:41 Dose: 2 puff Enoxaparin Sodium (Lovenox -) 40 mg SQ DAILY [facility] Last Admin: 05/21/17 09:41 Dose: Not Given Dextrose/Sodium Chloride (D5-1/2ns -) 1,000 mls @ 150 mls/hr IV ASDIR [facility] Last Admin: 05/21/17 09:41 Dose: 150 mls/hr Azithromycin 500 mg/ Dextrose 250 mls @ 250 mls/hr IVPB DAILY [facility] Stop: 05/23/17 14:59 Last Admin: 05/21/17 09:41 Dose: 250 mls/hr Montelukast Sodium (Singulair -) 10 mg PO HS KEISHA Last Admin: 05/20/17 22:15 Dose: 10 mg Prednisone (Deltasone -) 30 mg PO DAILY KEISHA Sumatriptan Succinate (Imitrex -) 100 mg PO DAILY PRN PRN Reason: HEADACHE Last Admin: 05/21/17 10:45 Dose: 100 mg ASSESSMENT/PLAN: 26yo obese woman with PMH of migraines and asthma who presents with NBNB emesis and watery diarrhea c/w gastroenteritis and asthma exacerbation. #Acute gastroenteritis, resolved. No further episodes of nausea/emesis/diarrhea -D/C IVFs -Zofran prn for nausea #Asthma exacerbation, improving. Peak flow 350 today, pre & post ambulatory pSaO2: 98% -> 95% on RA -Pulm consulted. -Taper steroids 60mg Q6H --> 30mg PO daily -Azithromycin 500mg IVP (05/21 QTc 454msec) - Day 2/3 -Albuterol nebs q4h PRN -home Singulair 10mg HS -Symbicort 160 2puffs BID -Incentive spirometer #migraine -cont home Imitrex 100mg qd #Hypokalemia, resolved #Obesity with BMI of 38 -Counseled on diet and lifestyle changes #Lung nodule 5mm at the pleural base in the superior segment of right lower lobe -OP follow-up 1yr with low dose CT chest #FEN: PO hydration / lytes wnl / Regular diet (low Na/fat) #DVT PPX - Lovenox 40mg SQ qd #DISPO: cont M/S, possible d/c tomorrow FULL code d/w Dr. Kev Leal MD PGY1 - Internal Medicine Visit type - Emergency Visit Emergency Visit: No - New Patient This patient is new to me today: No - Critical Care Critical Care patient: No
[2017-05-21 18:55] LABS: LYMPH # 1.9 (8-40); MCH 25.4 pg (25.7-33.7); MCHC 31.5 g/dl (32.0-36.0); MEAN CELL VOLUME 80.8 fl (80-96); MEAN PLT VOLUME 8.7 fl (7.5-11.1); MONO # 1.4 # (3.8-10.2); NEUT # 17.3 # (42.8-82.8); PLATELET COUNT 418 K/MM3 (134-434); RDW 15.5 % (11.6-15.6); WHITE BLOOD COUNT 20.7 K/mm3 (4.0-10.0)
[2017-05-21 19:18] LABS: ANION GAP 10 (8-16); BILIRUBIN,TOTAL 0.4 mg/dL (0.2-1.0); CALCIUM 8.2 mg/dL (8.5-10.1); CO2 23 mmol/L (21-32); CREATININE 0.8 mg/dL (0.55-1.02); GLUCOSE,RANDOM 137 mg/dL (74-106); SGOT/AST 11 U/L (15-37); SGPT/ALT 19 U/L (12-78); TOT PROT 6.8 g/dl (6.4-8.2)
[2017-05-21 19:19] LABS: ALK PHOS 56 U/L (45-117)
[2017-05-21 19:58] LABS: TOTAL CELLS COUNTED 100
[2017-05-21 19:59] LABS: OVALOCYTE 1+; PLATELET COMMENTS NO CLUMPING NOTED; PLATELET ESTIMATE INCREASED
[2017-05-21] MEDS ORDERED: SUMAtriptan SUCCINATE 50 MG TABLET PO ONE (21:00)
[2017-05-21] MEDS: MONTELUKAST NA 10 MG TABLET PO SCH (21:43)
--- NOTE | 2017-05-21 23:22 | PN ---
Teaching Attending Note Name of Resident: Yelitza Leal ATTENDING PHYSICIAN STATEMENT I saw and evaluated the patient. I reviewed the resident's note and discussed the case with the resident. I agree with the resident's findings and plan as documented. SUBJECTIVE: Patient is feeling better, continues to have migraine headache but in less intensity. looks better. OBJECTIVE: Vital Signs Temperature 98.2 F 05/21/17 19:00 Pulse Rate 95 H 05/21/17 19:00 Respiratory Rate 20 05/21/17 19:00 Blood Pressure 132/81 05/21/17 19:00 O2 Sat by Pulse Oximetry (%) 95 05/21/17 12:59 CBCD WBC 20.7 K/mm3 (4.0-10.0) H 05/21/17 18:00 RBC 4.81 M/mm3 (3.60-5.2) 05/21/17 18:00 Hgb 12.2 GM/dL (10.7-15.3) 05/21/17 18:00 Hct 38.8 % (32.4-45.2) 05/21/17 18:00 MCV 80.8 fl (80-96) 05/21/17 18:00 MCHC 31.5 g/dl (32.0-36.0) L 05/21/17 18:00 RDW 15.5 % (11.6-15.6) 05/21/17 18:00 Plt Count 418 K/MM3 (134-434) 05/21/17 18:00 MPV 8.7 fl (7.5-11.1) 05/21/17 18:00 CMP Sodium 141 mmol/L (136-145) 05/21/17 18:00 Potassium 4.1 mmol/L (3.5-5.1) 05/21/17 18:00 Chloride 108 mmol/L (98-107) H 05/21/17 18:00 Carbon Dioxide 23 mmol/L (21-32) 05/21/17 18:00 Anion Gap 10 (8-16) 05/21/17 18:00 BUN 8 mg/dL (7-18) 05/21/17 18:00 Creatinine 0.8 mg/dL (0.55-1.02) 05/21/17 18:00 Creat Clearance w eGFR > 60 (>60) 05/21/17 18:00 Random Glucose 137 mg/dL (74-106) H 05/21/17 18:00 Calcium 8.2 mg/dL (8.5-10.1) L 05/21/17 18:00 Total Bilirubin 0.4 mg/dL (0.2-1.0) 05/21/17 18:00 AST 11 U/L (15-37) L D 05/21/17 18:00 ALT 19 U/L (12-78) 05/21/17 18:00 Alkaline Phosphatase 56 U/L (45-117) 05/21/17 18:00 Total Protein 6.8 g/dl (6.4-8.2) 05/21/17 18:00 Albumin 3.0 g/dl (3.4-5.0) L 05/21/17 18:00 Current Medications Generic Name Dose Route Start Last Admin Trade Name Freq PRN Reason Stop Dose Admin Albuterol Sulfate 1 amp 05/18/17 01:29 05/21/17 21:24 Ventolin 0.083% Nebulizer Soln - NEB 1 amp Q4H PRN Administration SHORT OF BREATH/WHEEZING Budesonide/Formoterol Fumarate 2 puff 05/18/17 22:00 05/21/17 21:43 Symbicort 160/4.5mcg - IH 2 puff BID KEISHA Administration Enoxaparin Sodium 40 mg 05/19/17 11:30 05/21/17 09:41 Lovenox - SQ Not Given DAILY KEISHA Azithromycin 500 mg/ Dextrose 250 mls @ 250 mls/hr 05/20/17 15:00 05/21/17 09 :41 IVPB 05/23/17 14:59 250 mls/hr DAILY KEISHA Administration Montelukast Sodium 10 mg 05/18/17 22:00 05/21/17 21:43 Singulair - PO 10 mg HS KEISHA Administration Prednisone 30 mg 05/22/17 10:00 Deltasone - PO DAILY KEISHA Sumatriptan Succinate 100 mg 05/19/17 09:41 05/21/17 10:45 Imitrex - PO 100 mg DAILY PRN Administration HEADACHE Home Medications Medication Instructions Recorded Montelukast Sodium [Singulair] 10 mg PO DAILY 05/19/17 Sumatriptan Succinate [Imitrex -] 100 mg PO PRN 05/19/17 PE: continues to have decreased air entry BL. but improving rest of PE per resident's note ASSESSMENT AND PLAN: Patient is a 26 y/o female placed for an observation for having acute gastroenteritis with decreased PO intake, associated with vomiting and diarrhea. # Acute Asthma exacerbation improving . continues to have decreased Air entery BL, but better than before , continue Singulair, albuterol neb tx, on PO steroid now , pulmonary on the case incentive spirometer, peak flow is 350 today. # Acute gastroenteritis, resolved # Migraine headache, continues patient is on Imitrax 100mg po bid at home. # Acute hypokalemia repleted # Obesity with BMI of 38 # Lung nodule 5mm at the pleural base in the superior segment of right lower lobe, needs to be reevaluated in 4 months. DVT PX: Lovenox , early ambulation Patient can be discharged home on po steroid if is doing well. check the peak flow.
[2017-05-22] MEDS ORDERED: predniSONE 10 MG TABLET (UD) PO SCH (10:00)
[2017-05-22] MEDS ORDERED: PT OWN MED DRAWER 7, Y5N ONE ×2 (10:07→15:44)
[2017-05-22] MEDS: BUDESONIDE/FORMETEROL FUMARATE 160/4.5 mcg INHALER IH SCH (10:09)
[2017-05-22] MEDS: ENOXAPARIN NA (PORCINE) 40 MG/0.4 ML DISP.SYRIN SQ SCH (10:09)
[2017-05-22] MEDS: SUMAtriptan SUCCINATE 50 MG TABLET PO PRN (10:10)
[2017-05-22] MEDS: AZITHROMYCIN IVPB 500 MG in DEXTROSE 5%-WATER - 250 ML IVPB SCH (10:10)
[2017-05-22] MEDS ORDERED: ACETAMINOPHEN/CAFFEINE/BUTALBITAL 1 TAB PO PRN (11:03)
[2017-05-22 11:33] LABS: BASO % 0.1 % (0-2.0); EOS % 0.1 % (0-4.5); MCH 25.2 pg (25.7-33.7); MCHC 31.1 g/dl (32.0-36.0); MEAN CELL VOLUME 80.9 fl (80-96); MEAN PLT VOLUME 8.1 fl (7.5-11.1); MONO # 1.3 #; NEUT # 8.9 #; NEUT % 58.3 % (42.8-82.8); PLATELET COUNT 368 K/MM3 (134-434); WHITE BLOOD COUNT 15.2 K/mm3 (4.0-10.0)
[2017-05-22 11:50] LABS: ANION GAP 10 (8-16); CALCIUM 8.6 mg/dL (8.5-10.1); CO2 25 mmol/L (21-32); CREATININE 0.8 mg/dL (0.55-1.02); GLUCOSE,RANDOM 98 mg/dL (74-106)
[2017-05-22] MEDS ORDERED: predniSONE 10 MG TABLET (UD) PO ONE (13:15)
--- NOTE | 2017-05-22 13:33 | PN ---
Progress Note, Physician History of Present Illness: pulmonary alert,c/o dry cough,-sob - Current Medication List Current Medications: Active Medications Acetaminophen/Butalbital/Caffeine (Fioricet -) 1 tablet PO Q6H PRN PRN Reason: FEVER OR PAIN Albuterol Sulfate (Ventolin 0.083% Nebulizer Soln -) 1 amp NEB Q4H PRN PRN Reason: SHORT OF BREATH/WHEEZING Last Admin: 05/21/17 21:24 Dose: 1 amp Budesonide/Formoterol Fumarate (Symbicort 160/4.5mcg -) 2 puff IH BID [facility] Last Admin: 05/22/17 10:09 Dose: 2 puff Enoxaparin Sodium (Lovenox -) 40 mg SQ DAILY [facility] Last Admin: 05/22/17 10:09 Dose: Not Given Montelukast Sodium (Singulair -) 10 mg PO HS [facility] Last Admin: 05/21/17 21:43 Dose: 10 mg Prednisone (Deltasone -) 30 mg PO DAILY [facility] Last Admin: 05/22/17 10:09 Dose: 30 mg Sumatriptan Succinate (Imitrex -) 100 mg PO DAILY PRN PRN Reason: HEADACHE Last Admin: 05/22/17 10:10 Dose: 100 mg - Objective Vital Signs: Vital Signs Temperature 98.7 F 05/22/17 09:05 Pulse Rate 88 05/22/17 09:05 Respiratory Rate 18 05/22/17 09:05 Blood Pressure 114/76 05/22/17 09:05 O2 Sat by Pulse Oximetry (%) 95 05/21/17 21:00 Constitutional: Yes: Well Nourished, Calm Eyes: Yes: WNL HENT: Yes: WNL Neck: Yes: WNL Cardiovascular: Yes: Regular Rate and Rhythm, S1, S2 Respiratory: Yes: CTA Bilaterally Gastrointestinal: Yes: Normal Bowel Sounds, Soft Extremities: Yes: WNL Edema: No Labs: CBC, BMP 05/22/17 11:05 05/22/17 11:05 INR, PTT INR 1.05 (0.82-1.09) 05/17/17 16:29 Problem List - Problems (1) Asthma Code(s): J45.909 - UNSPECIFIED ASTHMA, UNCOMPLICATED (2) Abdominal pain Code(s): R10.9 - UNSPECIFIED ABDOMINAL PAIN Qualifiers: Abdominal location: epigastric Qualified Code(s): R10.13 - Epigastric pain (3) Vomiting Code(s): R11.10 - VOMITING, UNSPECIFIED Qualifiers: Vomiting type: unspecified Vomiting Intractability: non-intractable Nausea presence: with nausea Qualified Code(s): R11.2 - Nausea with vomiting, unspecified (4) Headache Code(s): R51 - HEADACHE (5) Gastroenteritis Code(s): K52.9 - NONINFECTIVE GASTROENTERITIS AND COLITIS, UNSPECIFIED (6) Lung nodule Code(s): R91.1 - SOLITARY PULMONARY NODULE Assessment/Plan MP ASTHMA EXACERBATION IMPROVING GASTROENTERITIS RLL NODULE PLAN INHALED BRONCHODILATORS, SYMBICORT 160/4.5 2PUFFS BID PREDNISONE O2 PRN PFTS OUTPATIENT F/U LOW DOSE CHEST CT [address]R [address] FELIZ Problem List - Problems (1) Asthma Code(s): J45.909 - UNSPECIFIED ASTHMA, UNCOMPLICATED (2) Abdominal pain Code(s): R10.9 - UNSPECIFIED ABDOMINAL PAIN Qualifiers: Abdominal location: epigastric Qualified Code(s): R10.13 - Epigastric pain (3) Vomiting Code(s): R11.10 - VOMITING, UNSPECIFIED Qualifiers: Vomiting type: unspecified Vomiting Intractability: non-intractable Nausea presence: with nausea Qualified Code(s): R11.2 - Nausea with vomiting, unspecified (4) Headache Code(s): R51 - HEADACHE (5) Gastroenteritis Code(s): K52.9 - NONINFECTIVE GASTROENTERITIS AND COLITIS, UNSPECIFIED (6) Lung nodule Code(s): R91.1 - SOLITARY PULMONARY NODULE
[2017-05-22 14:44] VITALS: BP 109/68; PULSE 96; TEMP 98.1
--- NOTE | 2017-05-22 17:27 | PN ---
Teaching Attending Note Name of Resident: Yelitza Leal ATTENDING PHYSICIAN STATEMENT I saw and evaluated the patient. I reviewed the resident's note and discussed the case with the resident. I agree with the resident's findings and plan as documented. SUBJECTIVE: No fever or chills, has no vomiting , but felt nauseous this am . LLQ abd pain continues , especially with coughing. no diarrhea OBJECTIVE: NAD CV : RRR Lungs : good air entry , no wheezes heard. Abd: soft, ND , TTP in LLQ, even with superficial palpation and pinching her skin . hypoactive BS Ext: no edema ASSESSMENT AND PLAN: 26 y/o lady with h/o Asthma, who presented with N/V/D and was found tohave asthma exacerbation 1- Acute asthma exacerbation. doing better, no evidence of pNA - prednisone taper - inhaled meds - symbicort - f/u with pulm as out pt - pt and mom were made aware of Lung nodule in L lower lobe. follow up in 6-12 months - no evidence of pNA , leukocytosis , is likely due to steroids . improved today 2- Acute gastroenteritis: n/v/d resolved. mild nausea now , is likely due to steroids. CT earlier with no etiology in abd /pelvis PPI at dc while on steroids 3-Migraine HUNTER , cont home dose imitrix dc home with prescriptions and f/u with pcp and pulmonary
--- NOTE | 2017-05-22 17:34 | DS ---
Physical Exam: SUBJECTIVE: Patient seen and examined OBJECTIVE: Vital Signs Period Temp Pulse Resp BP Sys/Kim Pulse Ox Last 24 Hr 98.1 F-98.7 F 87-96 18-20 109-137/68-81 95-97 PHYSICAL EXAM GENERAL: The patient is awake, alert, and fully oriented, in no acute distress. HEAD: Normal with no signs of trauma. EYES: PERRL, extraocular movements intact, sclera anicteric, conjunctiva clear. ENT: Ears normal, nares patent, oropharynx clear without exudates, moist mucous membranes. NECK: Trachea midline, full range of motion, supple. LUNGS: Breath sounds equal, clear to auscultation bilaterally, no wheezes, no crackles, no accessory muscle use. HEART: Regular rate and rhythm, S1, S2 without murmur, rub or gallop. ABDOMEN: Soft, nontender, nondistended, normoactive bowel sounds, no guarding, no rebound, no hepatosplenomegaly, no masses. EXTREMITIES: 2+ pulses, warm, well-perfused, no edema. NEUROLOGICAL: Cranial nerves II through XII grossly intact. Normal speech, gait not observed. PSYCH: Normal mood, normal affect. SKIN: Warm, dry, normal turgor, no rashes or lesions noted. LABS Laboratory Results - last 24 hr 05/21/17 05/21/17 05/22/17 18:00 18:00 11:05 WBC 20.7 H 15.2 H RBC 4.81 5.03 Hgb 12.2 12.6 Hct 38.8 40.7 MCV 80.8 80.9 MCH 25.4 L 25.2 L MCHC 31.5 L 31.1 L RDW 15.5 15.0 Plt Count 418 368 MPV 8.7 8.1 Total Counted 100 Neutrophils % No Result Required. 58.3 D Neutrophils % (Manual) 84.0 H Lymphocytes % No Result Required. 32.7 D Lymphocytes % (Manual) 10.0 Monocytes % 8.8 D Monocytes % (Manual) 6 Eosinophils % 0.1 D Basophils % 0.1 D Platelet Estimate Increased Platelet Comment No clumping noted Ovalocytes 1+ Sodium 141 Potassium 4.1 Chloride 108 H Carbon Dioxide 23 Anion Gap 10 BUN 8 Creatinine 0.8 Creat Clearance w eGFR > 60 Random Glucose 137 H Calcium 8.2 L Total Bilirubin 0.4 AST 11 L D ALT 19 Alkaline Phosphatase 56 Total Protein 6.8 Albumin 3.0 L 05/22/17 11:05 WBC RBC Hgb Hct MCV MCH MCHC RDW Plt Count MPV Total Counted Neutrophils % Neutrophils % (Manual) Lymphocytes % Lymphocytes % (Manual) Monocytes % Monocytes % (Manual) Eosinophils % Basophils % Platelet Estimate Platelet Comment Ovalocytes Sodium 141 Potassium 3.8 Chloride 106 Carbon Dioxide 25 Anion Gap 10 BUN 9 Creatinine 0.8 Creat Clearance w eGFR Random Glucose 98 D Calcium 8.6 Total Bilirubin AST ALT Alkaline Phosphatase Total Protein Albumin HOSPITAL COURSE: Date of Admission:05/20/17 Date of Discharge: 05/22/17 Discharge Summary Reason For Visit: INADEQUATE ORAL INTAKE,ABDOMINAL PAIN,VOMITING Condition: Stable - Instructions Diet, Activity, Other Instructions: You were admitted to the hospital for gastroenteritis and asthma exacerbation. Recommendations: -You can resume your regular daily activities as tolerated. Drink plenty fluids and eat a bland diet for the next 1-2 days as tolerated. Medications: -You can resume your regular daily medications with the following additions: (1) You are on a Prednisone (steroid) taper. Your first dose will be tomorrow. Follow the schedule below. Your last dose will be on 06/02/17. 05/23 and 05/24: Take 40mg 05/25, , 05/27: Take 30mg 05/28, 05/29, 05/30: Take 20mg 05/31, 06/01, 06/02: Take 10mg (2) Take Omeprazole 40mg daily for 1 week (3) Take Maalox three times per day with meals for the next 1 week (4) Take 2puffs of Symbicort two times per day regularly even if you don't have asthma symptoms Follow-ups: -Get your blood checked in the next 3-4 days, and have the lab fax the results to Dr. Reynolds ( ) -Make an appointment to see Dr. Reynolds within the next 1 week to review your blood work and for post-hospital evaluation. -Please make an appointment within the next 1-[address] Vilchis ( Pulmonology) to have your lung function tested and discuss your asthma. As discussed, a 5mm nodule was found on your right lower lobe. You should have a low dose CT scan done in 1 year to follow it. Please return to the Emergency Department if you have worsening shortness of breath, can't tolerate any food, have fever, chills, or any new or concerning symptoms. Referrals: Syed Vilchis MD [Staff Physician] - 2 Weeks Guille Reynolds [Primary Care Provider] - 1 Week Disposition: HOME - Home Medications Comprehensive Discharge Medication List: Ambulatory Orders Montelukast Sodium [Singulair] 10 mg PO DAILY 05/19/17 Sumatriptan Succinate [Imitrex -] 100 mg PO PRN 05/19/17 Budesonide/Formeterol Fumarate [SYMBICORT 160/4.5mcg -] 2 puff IH BID #1 inhaler 05/22/17 Miscellaneous Drug Not In Syst [Outpatient Lab Test] 1 each ASDIR #1 misc Omeprazole 40 mg PO DAILY #7 capsule. 05/22/17 Prednisone [Deltasone -] 10 mg PO DAILY #26 tablet 05/22/17 - Discharge Referral Referred to [facility] No
== END 2017-05-22 16:55 | disposition home or self-care (01) | DRG 249 ==
LOC: JER 13:17 → JERBED 22:54 → J5S 05-18 00:55 → OBSVTOIN 05-20 14:56
PROVIDERS: ADMIT Internal Medicine; ATTEND Internal Medicine
DX: K52.89 Other specified noninfective gastroenteritis and colitis (principal); R10.13 Epigastric pain; R50.9 Fever, unspecified; G43.809 Other migraine, not intractable, without status migrainosus; E87.6 Hypokalemia; E66.8 Other obesity; Z68.38 Body mass index [BMI] 38.0-38.9, adult; R91.1 Solitary pulmonary nodule; N94.6 Dysmenorrhea, unspecified; J45.901 Unspecified asthma with (acute) exacerbation
CPT/HCPCS: 36415; 71010-TC; 74177-TC; 80048; 80053; 81003; 81015; 82803; 83605; 83690; 83735; 84100; 84703; 85025; 85027; 85610; 85730; 86850; 86900; 86901; 87040; 87086; 93005; 93010; 94010; 94150; 94640; 94761; 99283-25; G0378

== ENCOUNTER 2022-04-17 17:52 | Emergency (ER) | payer OTHER ==
[2022-04-17 18:31] VITALS: BP 121/73; PULSE 95; RESP 20; TEMP 98.1; BMI 45.1
[2022-04-17] MEDS ORDERED: SODIUM CHLORIDE 1,000 ML IV STA (20:10)
[2022-04-17] MEDS ORDERED: ACETAMINOPHEN 1000 MG/100 ML BAG IVPB ONE (20:11)
[2022-04-17] MEDS ORDERED: ACETAMINOPHEN INJECTION 100 ML IVPB ONE (20:13)
[2022-04-17 20:36] LABS: BASO % 0.8 % (0-2.0); EOS % 1.6 % (0-4.5); HEMOGLOBIN 12.5 GM/dL (10.7-15.3); LYMPH % 35.2 % (8-40); MCH 26.2 pg (25.7-33.7); MCHC 32.1 g/dl (32.0-36.0); MEAN CELL VOLUME 81.6 fl (80-96); MEAN PLT VOLUME 8.1 fl (7.5-11.1); MONO % 6.8 % (3.8-10.2); NEUT % 55.6 % (42.8-82.8); PLATELET COUNT 375 10^3/uL (134-434); RBC 4.78 M/mm3 (3.60-5.2); RDW 14.6 % (11.6-15.6); URINE APPEARANCE CLEAR; URINE BILIRUBIN NEGATIVE (NEGATIVE); URINE COLOR YELLOW; URINE GLUCOSE (UA) NEGATIVE (NEGATIVE); URINE KETONE NEGATIVE (NEGATIVE); URINE LEUK ESTERASE NEGATIVE (NEGATIVE); URINE NITRITE NEGATIVE (NEGATIVE); URINE PROTEIN NEGATIVE (NEGATIVE); URINE UROBILINOGEN 0.2 mg/dL (0.2-1.0); WHITE BLOOD COUNT 10.7 K/mm3 (4.0-10.0)
[2022-04-17 20:39] LABS: HCG,QUALITATIVE URINE Negative
[2022-04-17 21:03] LABS: ALBUMIN 3.1 g/dl (3.4-5.0)
[2022-04-17 21:06] LABS: CREATININE 0.9 mg/dL (0.55-1.3)
[2022-04-17 21:08] LABS: BILIRUBIN,TOTAL 0.3 mg/dL (0.2-1); TOT PROT 7.1 g/dl (6.4-8.2)
== END 2022-04-17 22:56 | disposition home or self-care (01) ==
LOC: JER 17:52
PROC: 3E0333Z Introduction of Anti-inflammatory into Peripheral Vein, Percutaneous Approach (ICD-10-PCS; principal; 2022-04-17)
PROC: 3E0337Z Introduction of Electrolytic and Water Balance Substance into Peripheral Vein, Percutaneous Approach (ICD-10-PCS; 2022-04-17)
DX: R35.0 Frequency of micturition (principal); N30.00 Acute cystitis without hematuria
CPT/HCPCS: 36415; 74176-TC; 80053; 81003; 84703; 85025; 87077; 87086; 96361; 96374; 99284-25

== ENCOUNTER 2022-06-08 19:12 | Inpatient (IN) | payer OTHER ==
[2022-06-08 19:19] VITALS: BMI 45.1
[2022-06-08] MEDS ORDERED: ACETAMINOPHEN 1000 MG/100 ML BAG IVPB ONE (20:28)
[2022-06-08] MEDS ORDERED: FAMOTIDINE 20 MG/50 ML IVPB 20 MG/50 ML MG IVPB ONE ×2 (20:28→21:01)
[2022-06-08] MEDS ORDERED: SUCRALFATE 1 GM/10 ML UNIT DOSE CUPS PO ONE (20:29)
[2022-06-08] MEDS ORDERED: MAG HYDROX/AL HYDROX/SIMETH 30 ML UNIT-DOSE CUP PO ONE (20:29)
[2022-06-08] MEDS ORDERED: SUCRALFATE 1 GM TABLET (FP) ONE (21:00)
[2022-06-08] MEDS ORDERED: ACETAMINOPHEN INJECTION 100 ML IVPB ONE (21:01)
[2022-06-08] MEDS ORDERED: MAG HYDROX/AL HYDROX/SIMETH 30 ML UNIT-DOSE CUP ONE (21:01)
[2022-06-08 21:24] LABS: BASO % 0.2 % (0-2.0); EOS % 1.2 % (0-4.5); HEMATOCRIT 36.6 % (32.4-45.2); HEMOGLOBIN 12.1 GM/dL (10.7-15.3); LYMPH % 31.9 % (8-40); MCH 26.5 pg (25.7-33.7); MCHC 33.1 g/dl (32.0-36.0); MEAN CELL VOLUME 79.9 fl (80-96); MEAN PLT VOLUME 7.8 fl (7.5-11.1); MONO % 7.6 % (3.8-10.2); NEUT % 59.1 % (42.8-82.8); PLATELET COUNT 411 10^3/uL (134-434); RBC 4.58 M/mm3 (3.60-5.2); RDW 14.3 % (11.6-15.6); URINE APPEARANCE CLEAR; URINE BILIRUBIN NEGATIVE (NEGATIVE); URINE COLOR DK YELLOW; URINE GLUCOSE (UA) NEGATIVE (NEGATIVE); URINE KETONE TRACE (NEGATIVE); URINE LEUK ESTERASE NEGATIVE (NEGATIVE); URINE NITRITE NEGATIVE (NEGATIVE); URINE PROTEIN TRACE (NEGATIVE); URINE UROBILINOGEN 0.2 mg/dL (0.2-1.0); WHITE BLOOD COUNT 13.5 K/mm3 (4.0-10.0)
[2022-06-08 21:40] LABS: CALCIUM 8.8 mg/dL (8.5-10.1)
[2022-06-08 21:41] LABS: ALBUMIN 2.8 g/dl (3.4-5.0); BLOOD UREA NITROGEN 8.5 mg/dL (7-18)
[2022-06-08 21:44] LABS: CREATININE 0.8 mg/dL (0.55-1.3)
[2022-06-08 21:45] LABS: BILIRUBIN,TOTAL 0.3 mg/dL (0.2-1); TOT PROT 7.3 g/dl (6.4-8.2)
[2022-06-08] MEDS ORDERED: SODIUM CHLORIDE 0.9% 500 ML INFUS.BAG IV ONE (21:46)
[2022-06-08] MEDS ORDERED: morphine CARPU-JECT 4 MG/1 ML DISP.SYRIN IVPUSH ONE (22:08)
[2022-06-08] MEDS ORDERED: morphine SULFATE 4 MG/ML VIAL ONE (22:10)
[2022-06-08] MEDS ORDERED: CEFTRIAXONE 1,000 MG in DEXTROSE 5%-WATER - 50 ML IVPB ONE (22:46)
[2022-06-08] MEDS ORDERED: CEFTRIAXONE 1 GM/50 ML BAG ONE (22:56)
[2022-06-08 23:36] LABS: INR 1.02 (0.83-1.09); PROTHROMBIN TIME (PATIENT) 11.7 SEC (9.7-13.0)
[2022-06-08 23:39] LABS: ACTIVATED PTT 27.6 SECONDS (25.2-36.5)
[2022-06-09] MEDS ORDERED: ALBUTEROL SO4 0.083% IH SOL 2.5 MG/3 ML VIAL.NEB. NEB PRN ×2 (01:14→16:20)
[2022-06-09] MEDS ORDERED: morphine CARPU-JECT 4 MG/1 ML DISP.SYRIN IVPUSH ONE (04:10)
[2022-06-09] MEDS ORDERED: morphine SULFATE 4 MG/ML VIAL IVPUSH PRN ×2 (06:00→16:20)
[2022-06-09] MEDS ORDERED: morphine SULFATE 4 MG/ML VIAL ONE (07:33)
[2022-06-09] MEDS ORDERED: ONDANSETRON 4 MG/2 ML VIAL IVPUSH ONE (09:18)
[2022-06-09] MEDS ORDERED: ONDANSETRON 4 MG/2 ML VIAL ONE ×3 (09:38→15:03)
[2022-06-09] MEDS ORDERED: BUPIVACAINE HCL/PF 0.25% (2.5MG/ML) 10 ML VIAL ONE (10:49)
[2022-06-09] MEDS ORDERED: ONDANSETRON 4 MG/2 ML VIAL IVPUSH PRN ×2 (11:03→16:20)
[2022-06-09] MEDS ORDERED: MIDAZOLAM HCL 2 MG/2 ML SINGLE DOSE VIAL ONE (11:12)
[2022-06-09] MEDS ORDERED: PROPOFOL 60 ML ONE (11:12)
[2022-06-09] MEDS ORDERED: LIDOCAINE HCL/PF 2% SDV 5ML VIAL ONE (11:13)
[2022-06-09] MEDS ORDERED: ROCURONIUM BROMIDE 50 MG/5 ML SYRINGE ONE ×2 (11:13→14:43)
[2022-06-09] MEDS ORDERED: SUCCINYLCHOLINE CHLORIDE 200 MG/10 ML SYRINGE ONE (11:13)
[2022-06-09] MEDS ORDERED: LACTATED RINGERS SOLUTION 1,000 ML IV SCH (11:15)
[2022-06-09] MEDS ORDERED: ACETAMINOPHEN INJECTION 100 ML IVPB ONE (11:30)
[2022-06-09] MEDS ORDERED: HEPARIN NA (PORCINE) 5,000 UNITS/ML 1ML VIAL ONE (12:37)
[2022-06-09] MEDS ORDERED: cefOXitin SODIUM 2 GM VIAL (RESTRICTED TO ID) IVPB ONE ×2 (12:37→13:20)
[2022-06-09] MEDS ORDERED: DEXAMETHASONE SOD PHOSPHATE 4 MG/1 ML VIAL ONE (13:45)
[2022-06-09] MEDS ORDERED: KETOROLAC TROMETHAMINE 30 MG/1 ML VIAL ONE (13:46)
[2022-06-09] MEDS ORDERED: BUPIVACAINE HCL/PF 0.25% (2.5MG/ML) 10 ML VIAL IJ ONE (13:53)
[2022-06-09] MEDS ORDERED: SUGAMMADEX SODIUM 200 MG/2 ML VIAL ONE ×2 (13:59→14:00)
[2022-06-09 17:13] VITALS: RESP 18
[2022-06-09] MEDS: LACTATED RINGERS SOLUTION 1,000 ML IV SCH (17:20)
[2022-06-09] MEDS: ACETAMINOPHEN 500 MG TABLET (FP) PO SCH (17:27)
[2022-06-09] MEDS: morphine SULFATE 4 MG/ML VIAL IVPUSH PRN (18:22)
[2022-06-09] MEDS: oxyCODONE HCL 5 MG TABLET PO PRN (20:38)
[2022-06-10] MEDS: ACETAMINOPHEN 500 MG TABLET (FP) PO SCH ×3 (00:30→16:50)
[2022-06-10] MEDS: morphine SULFATE 4 MG/ML VIAL IVPUSH PRN (04:35)
[2022-06-10 09:47] LABS: BASO % 0.1 % (0-2.0); HEMATOCRIT 32.6 % (32.4-45.2); HEMOGLOBIN 10.5 GM/dL (10.7-15.3); LYMPH % 11.6 % (8-40); MCH 25.9 pg (25.7-33.7); MCHC 32.2 g/dl (32.0-36.0); MEAN CELL VOLUME 80.6 fl (80-96); MEAN PLT VOLUME 8.2 fl (7.5-11.1); MONO % 5.6 % (3.8-10.2); NEUT % 82.7 % (42.8-82.8); PLATELET COUNT 344 10^3/uL (134-434); RBC 4.05 M/mm3 (3.60-5.2); RDW 14.1 % (11.6-15.6); WHITE BLOOD COUNT 14.6 K/mm3 (4.0-10.0)
[2022-06-10] MEDS: oxyCODONE HCL 5 MG TABLET PO PRN ×2 (10:40→23:15)
[2022-06-10] MEDS ORDERED: BENZOCAINE/MENTH/CETYLPYRD CL 1 EACH LOZENGE MM PRN (12:30)
[2022-06-10] MEDS ORDERED: oxyCODONE HCL 5 MG TABLET PO PRN (15:00)
[2022-06-10] MEDS: KETOROLAC TROMETHAMINE 30 MG/1 ML VIAL IVPUSH SCH ×2 (15:17→21:42)
[2022-06-10] MEDS: LACTATED RINGERS SOLUTION 1,000 ML IV SCH (16:49)
[2022-06-10] MEDS ORDERED: ACETAMINOPHEN 500 MG TABLET (FP) PO PRN (20:36)
[2022-06-11] MEDS: KETOROLAC TROMETHAMINE 30 MG/1 ML VIAL IVPUSH SCH ×2 (04:00→10:27)
[2022-06-11] MEDS: oxyCODONE HCL 5 MG TABLET PO PRN ×3 (05:17→17:48)
[2022-06-11] MEDS ORDERED: ACETAMINOPHEN 500 MG TABLET (FP) PO SCH (08:00)
[2022-06-11] MEDS ORDERED: ACETAMINOPHEN 1000 MG/100 ML BAG IVPB PRN (09:32)
[2022-06-11] MEDS: POLYETHYLENE GLYCOL (HEALTHYLAX) 3350 17 GM PACKET PO SCH (10:30)
[2022-06-11] MEDS: DOCUSATE SODIUM 100 MG CAPSULE (FP) PO SCH ×2 (10:30→22:03)
[2022-06-11 10:36] LABS: BASO % 0.3 % (0-2.0); EOS % 1.1 % (0-4.5); HEMATOCRIT 31.4 % (32.4-45.2); HEMOGLOBIN 10.1 GM/dL (10.7-15.3); LYMPH % 38.9 % (8-40); MCH 26.2 pg (25.7-33.7); MCHC 32.3 g/dl (32.0-36.0); MEAN CELL VOLUME 81.2 fl (80-96); MONO % 5.8 % (3.8-10.2); NEUT % 53.9 % (42.8-82.8); PLATELET COUNT 324 10^3/uL (134-434); RBC 3.86 M/mm3 (3.60-5.2); RDW 14.3 % (11.6-15.6); WHITE BLOOD COUNT 13.1 K/mm3 (4.0-10.0)
[2022-06-11 10:53] LABS: BLOOD UREA NITROGEN 5.3 mg/dL (7-18)
[2022-06-11 10:57] LABS: CREATININE 0.8 mg/dL (0.55-1.3)
[2022-06-11] MEDS ORDERED: oxyCODONE HCL 5 MG TABLET PO PRN (11:05)
[2022-06-11] MEDS: ACETAMINOPHEN 500 MG TABLET (FP) PO SCH ×2 (15:59→22:03)
[2022-06-11] MEDS: LACTATED RINGERS SOLUTION 1,000 ML IV SCH (17:47)
[2022-06-12] MEDS: ACETAMINOPHEN 500 MG TABLET (FP) PO SCH (02:30)
[2022-06-12] MEDS ORDERED: ACETAMINOPHEN 1000 MG/100 ML BAG IVPB SCH (08:45)
[2022-06-12] MEDS: DOCUSATE SODIUM 100 MG CAPSULE (FP) PO SCH (09:12)
[2022-06-12] MEDS: POLYETHYLENE GLYCOL (HEALTHYLAX) 3350 17 GM PACKET PO SCH (09:12)
[2022-06-12] MEDS ORDERED: FAMOTIDINE 10 MG TABLET PO SCH (10:00)
[2022-06-12 10:08] LABS: BASO % 0.2 % (0-2.0); EOS % 1.9 % (0-4.5); HEMATOCRIT 35.1 % (32.4-45.2); HEMOGLOBIN 11.3 GM/dL (10.7-15.3); LYMPH % 32.6 % (8-40); MCH 25.9 pg (25.7-33.7); MCHC 32.2 g/dl (32.0-36.0); MEAN CELL VOLUME 80.3 fl (80-96); MEAN PLT VOLUME 7.8 fl (7.5-11.1); MONO % 6.8 % (3.8-10.2); NEUT % 58.5 % (42.8-82.8); PLATELET COUNT 381 10^3/uL (134-434); RBC 4.37 M/mm3 (3.60-5.2); RDW 14.4 % (11.6-15.6); WHITE BLOOD COUNT 12.1 K/mm3 (4.0-10.0)
[2022-06-12 10:24] LABS: CALCIUM 8.9 mg/dL (8.5-10.1)
[2022-06-12 10:25] LABS: ALBUMIN 2.6 g/dl (3.4-5.0); BLOOD UREA NITROGEN 5.1 mg/dL (7-18); MAGNESIUM 2.1 mg/dL (1.8-2.4)
[2022-06-12 10:26] LABS: PHOSPHOROUS 4.5 mg/dL (2.5-4.9)
[2022-06-12 10:27] LABS: BILIRUBIN,TOTAL 0.4 mg/dL (0.2-1); TOT PROT 6.4 g/dl (6.4-8.2)
[2022-06-12 10:28] LABS: CREATININE 0.8 mg/dL (0.55-1.3)
[2022-06-12] MEDS ORDERED: SIMETHICONE 80 MG TAB.CHEW (FP) PO ONE (13:30)
[2022-06-12 14:42] VITALS: BP 120/70; PULSE 74; TEMP 98.4
== END 2022-06-12 14:07 | disposition home or self-care (01) | DRG 263 ==
LOC: JER 19:12 → JERBED 22:44 → J6S 06-09 17:05
PROVIDERS: ADMIT Internal Medicine
PROC: 0FT44ZZ Resection of Gallbladder, Percutaneous Endoscopic Approach (ICD-10-PCS; principal; 2022-06-09 11:00)
DX: K80.00 Calculus of gallbladder with acute cholecystitis without obstruction (principal); J45.909 Unspecified asthma, uncomplicated; G43.909 Migraine, unspecified, not intractable, without status migrainosus; Z86.16 Personal history of COVID-19; E66.01 Morbid (severe) obesity due to excess calories; Z68.42 Body mass index [BMI] 45.0-49.9, adult; N94.6 Dysmenorrhea, unspecified; I10 Essential (primary) hypertension; E78.5 Hyperlipidemia, unspecified; R73.03 Prediabetes
CPT/HCPCS: 0241U-QW; 36415; 76705-TC; 80048; 80053; 81003; 83690; 83735; 84100; 84703; 85025; 85610; 85730; 86850; 86900; 86901; 87040; 87086; 87186; 88304-TC; 93005; 93010; 94010; 94760; 99285-25; J1644